=== PATIENT | male | born 1990 | race Caucasian/White ===

== ENCOUNTER 2017-12-05 09:24 | Emergency (ER) | payer OTHER ==
[2017-12-05 09:32] VITALS: RESP 16
--- NOTE | 2017-12-05 10:44 | ED ---
Wound/Laceration HPI - General Chief Complaint: Wound/Laceration Stated Complaint: finger lac Time Seen by Provider: 12/05/17 09:43 Source: patient, RN notes reviewed Mode of arrival: ambulatory Limitations: no limitations - History of Present Illness Initial Comments: 27-year-old male presents emergency Department chief complaint of laceration. Patient has a laceration to his left hand third digit. This happened around 1 AM this morning. Patient states he cut his finger with a late razor blade. His tetanus is up-to-date. Patient's full range of motion. - Related Data Home Medications Medication Instructions Recorded Confirmed No Known Home Medications [No 12/05/17 12/05/17 Known Home Medications] Allergies Allergy/AdvReac Type Severity Reaction Status Date / Time No Known Allergies Allergy Verified 12/05/17 09:41 Review of Systems ROS Statement: Those systems with pertinent positive or pertinent negative responses have been documented in the HPI. ROS Other: All systems not noted in ROS Statement are negative. Past Medical History Past Medical History: Seizure Disorder Additional Past Medical History / Comment(s): DDD, scoliosis, ADHD History of Any Multi-Drug Resistant Organisms: None Reported Additional Past Surgical History / Comment(s): facial surgery after dog bite. DDD , scoliosis Past Psychological History: ADD/ADHD, Schizoaffective Disorder Smoking Status: Current every day smoker Past Alcohol Use History: Rare Past Drug Use History: Marijuana, Methamphetamine, Opiates General Exam Limitations: no limitations General appearance: alert, in no apparent distress Respiratory exam: Present: normal lung sounds bilaterally. Absent: respiratory distress, wheezes, rales, rhonchi, stridor Cardiovascular Exam: Present: regular rate, normal rhythm, normal heart sounds. Absent: systolic murmur, diastolic murmur, rubs, gallop, clicks Extremities exam: Present: other (Left hand third digit there is a 2 cm laceration at the distal tip patient's full range of motion neurovascular intact Refill less than 2 seconds) Course Vital Signs 12/05/17 09:31 Temperature 97.1 F L Pulse Rate 59 L Respiratory 16 Rate Blood Pressure 125/82 O2 Sat by Pulse 100 Oximetry Procedures - Laceration Laceration #1 Consent Obtained: verbal consent Indication: laceration Site: hand (Left third digit) Size (cm): 2 Description: linear Anesthetic Used: lidocaine 1%, without epi Anesthesia Technique: local infiltration Amount (mls): 2 Pre-repair: wound explored, irrigated extensively, deep structures intact Type of Sutures: nylon Size of Sutures: 4-0 Number of Sutures: 5 Technique: simple, interrupted Patient Tolerated Procedure: well, no complications Medical Decision Making - Medical Decision Making 27-year-old male presented for finger laceration. This was closed using sutures. Patient tolerated well no complications. Tetanus is up-to-date. Wound care was discussed. Return parameters were discussed. Disposition Clinical Impression: Finger laceration Disposition: HOME SELF-CARE Condition: Stable Instructions: Finger Laceration (ED) Additional Instructions: Has sutures removed in 10 days. Please return to the Emergency Department if symptoms worsen or any other concerns. Is patient prescribed a controlled substance at d/c from ED?: No Referrals: None,Stated [Primary Care Provider] - 1-2 days
[2017-12-05 11:07] VITALS: BP 111/70; PULSE 60; TEMP 98
== END 2017-12-05 11:06 | disposition home or self-care (01) ==
LOC: EC 09:24
DX: S61.213A Laceration without foreign body of left middle finger without damage to nail, initial encounter (principal); F17.200 Nicotine dependence, unspecified, uncomplicated; W45.8XXA Other foreign body or object entering through skin, initial encounter; Y93.89 Activity, other specified
CPT/HCPCS: 12001; 99282

== ENCOUNTER 2017-12-26 23:33 | Emergency (ER) | payer OTHER ==
--- NOTE | 2017-12-26 23:42 | ED ---
General Adult HPI - General Stated complaint: overdose Time Seen by Provider: 12/26/17 23:35 Source: patient, EMS, RN notes reviewed Mode of arrival: EMS Limitations: no limitations - History of Present Illness Initial comments: Patient is a 27-year-old male presenting to the emergency department following an overdose. Patient states he does occasionally use drugs. 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 Patient does occasionally use heroin and believes he injected heroin tonight. EMS did provide patient with Narcan. Patient feels fine at this time and has no complaints. Patient denies any suicidal thoughts. Patient states he is functioning fine otherwise. - Related Data Home Medications Medication Instructions Recorded Confirmed No Known Home Medications 12/05/17 12/05/17 Allergies Allergy/AdvReac Type Severity Reaction Status Date / Time No Known Allergies Allergy Verified 12/26/17 23:40 Review of Systems ROS Statement: Those systems with pertinent positive or pertinent negative responses have been documented in the HPI. ROS Other: All systems not noted in ROS Statement are negative. Constitutional: Denies: fever Eyes: Denies: eye pain ENT: Denies: ear pain Respiratory: Denies: cough Cardiovascular: Denies: chest pain Endocrine: Denies: fatigue Gastrointestinal: Denies: abdominal pain Genitourinary: Denies: dysuria Musculoskeletal: Denies: back pain Skin: Denies: rash Neurological: Denies: weakness Psychiatric: Denies: suicidal thoughts Past Medical History Past Medical History: Seizure Disorder Additional Past Medical History / Comment(s): DDD, scoliosis, ADHD History of Any Multi-Drug Resistant Organisms: None Reported Additional Past Surgical History / Comment(s): facial surgery after dog bite. DDD , scoliosis Past Psychological History: ADD/ADHD, Schizoaffective Disorder Smoking Status: Current every day smoker Past Alcohol Use History: Rare Past Drug Use History: Marijuana, Methamphetamine, Opiates General Exam Limitations: no limitations General appearance: alert, in no apparent distress Head exam: Present: atraumatic Eye exam: Present: normal appearance, PERRL, EOMI ENT exam: Present: normal oropharynx Neck exam: Present: normal inspection. Absent: tenderness Respiratory exam: Present: normal lung sounds bilaterally Cardiovascular Exam: Present: regular rate, normal rhythm GI/Abdominal exam: Present: soft. Absent: tenderness Extremities exam: Present: normal inspection Neurological exam: Present: alert Psychiatric exam: Present: agitated (Patient is mildly agitated) Skin exam: Present: normal color Course Vital Signs 12/26/17 23:34 Temperature 97.8 F Pulse Rate 101 H Respiratory 18 Rate Blood Pressure 152/90 O2 Sat by Pulse 99 Oximetry Medical Decision Making - Medical Decision Making Patient remains alert and appropriate. Patient requesting discharge. Disposition Clinical Impression: Drug overdose Disposition: HOME SELF-CARE Condition: Stable Instructions: Adult Overdose (ED) Additional Instructions: Discontinue heroin and other drug use. Follow-up list provided. Return for drowsiness, worsening symptoms, thoughts of self-harm or other concerns. Is patient prescribed a controlled substance at d/c from ED?: No Referrals: Amanda Esquivel MD [STAFF PHYSICIAN] - 1-2 days Time of Disposition: 00:23
[2017-12-26 23:45] VITALS: RESP 18
[2017-12-27 00:28] VITALS: BP 142/67; PULSE 100; TEMP 97.9
== END 2017-12-27 00:28 | disposition home or self-care (01) ==
LOC: EC 23:33
DX: T40.1X1A Poisoning by heroin, accidental (unintentional), initial encounter (principal); R45.1 Restlessness and agitation; F17.200 Nicotine dependence, unspecified, uncomplicated
CPT/HCPCS: 99284

== ENCOUNTER 2018-03-04 10:56 | Inpatient (IN) | payer OTHER ==
[2018-03-04] MEDS ORDERED: SODIUM CHLORIDE 0.9% 1,000 ML IV STA (11:18)
--- NOTE | 2018-03-04 11:21 | ED ---
General Adult HPI - General Chief complaint: Weakness Stated complaint: weakness, orange urine Time Seen by Provider: 03/04/18 11:00 Source: patient, RN notes reviewed Mode of arrival: ambulatory Limitations: no limitations - History of Present Illness Initial comments: This is a 27-year-old male who presents emergency Department with no significant past medical history. Patient states he comes in today because he has been feeling weak the last few days. Patient states it started on Saturday and continued through today. Patient states he missed work yesterday and missed work again today. Patient states on Saturday he vomited times one hasn't vomited since. Patient denies any diarrhea. Patient denies any recent fever. Patient states his urine is also been very orange in color. Patient is also complaining of muscle cramps in the legs and arms. Patient denies any difficulty breathing or chest pain. Patient denies any recent injury or trauma. Patient denies any lightheadedness dizziness or near syncopal episode. Patient states overall he just feels weaker than normal - Related Data Home Medications Medication Instructions Recorded Confirmed No Known Home Medications 12/05/17 03/04/18 Allergies Allergy/AdvReac Type Severity Reaction Status Date / Time No Known Allergies Allergy Verified 12/26/17 23:40 Review of Systems ROS Statement: Those systems with pertinent positive or pertinent negative responses have been documented in the HPI. ROS Other: All systems not noted in ROS Statement are negative. Past Medical History Past Medical History: Seizure Disorder Additional Past Medical History / Comment(s): DDD, scoliosis, ADHD History of Any Multi-Drug Resistant Organisms: None Reported Additional Past Surgical History / Comment(s): facial surgery after dog bite. DDD , scoliosis Past Psychological History: ADD/ADHD, Schizoaffective Disorder Smoking Status: Current every day smoker Past Alcohol Use History: Rare Past Drug Use History: Marijuana General Exam - General Exam Comments Initial Comments: GENERAL: Patient is well-developed and well-nourished. Patient is nontoxic and well- hydrated and is in no acute distress. ENT: Neck is soft and supple. No significant lymphadenopathy is noted. Oropharynx is clear. Moist mucous membranes. Neck has full range of motion without eliciting any pain. EYES: The sclera were anicteric and conjunctiva were pink and moist. Extraocular movements were intact and pupils were equal round and reactive to light. Eyelids were unremarkable. PULMONARY: Unlabored respirations. Good breath sounds bilaterally. No audible rales rhonchi or wheezing was noted. CARDIOVASCULAR: There is a regular rate and rhythm without any murmurs gallops or rubs. ABDOMEN: Soft and nontender with normal bowel sounds. No palpable organomegaly was noted. There is no palpable pulsatile mass. SKIN: Skin is clear with no lesions or rashes and otherwise unremarkable. NEUROLOGIC: Patient is alert and oriented x3. Cranial nerves II through XII are grossly intact. Motor and sensory are also intact. Normal speech, volume and content. Symmetrical smile. MUSCULOSKELETAL: Normal extremities with adequate strength and full range of motion. No lower extremity swelling or edema. No calf tenderness. LYMPHATICS: No significant lymphadenopathy is noted PSYCHIATRIC: Normal psychiatric evaluation. Limitations: no limitations Course Vital Signs 03/04/18 03/04/18 11:06 12:10 Temperature 97.5 F L 97.2 F L Pulse Rate 65 60 Respiratory 18 20 Rate Blood Pressure 103/63 118/68 O2 Sat by Pulse 99 100 Oximetry Medical Decision Making - Medical Decision Making I spoke with Dr. Mojica he agreed to admit the patient admitted the patient I consult the GI. I wrote admitting orders. - Lab Data Result diagrams: 03/04/18 11:39 03/04/18 11:39 Lab Results 03/04/18 03/04/18 03/04/18 Range/Units 11:28 11:39 11:39 WBC 6.9 (3.8-10.6) k/uL RBC 5.03 (4.30-5.90) m/uL Hgb 14.8 (13.0-17.5) gm/dL Hct 45.7 (39.0-53.0) % MCV 90.8 (80.0-100.0) fL MCH 29.5 (25.0-35.0) pg MCHC 32.5 (31.0-37.0) g/dL RDW 13.8 (11.5-15.5) % Plt Count 174 (150-450) k/uL Neutrophils % 76 % Lymphocytes % 13 % Monocytes % 7 % Eosinophils % 1 % Basophils % 1 % Neutrophils # 5.2 (1.3-7.7) k/uL Lymphocytes # 0.9 L (1.0-4.8) k/uL Monocytes # 0.5 (0-1.0) k/uL Eosinophils # 0.1 (0-0.7) k/uL Basophils # 0.0 (0-0.2) k/uL Sodium 139 (137-145) mmol/L Potassium 4.9 (3.5-5.1) mmol/L Chloride 105 (98-107) mmol/L Carbon Dioxide 23 (22-30) mmol/L Anion Gap 11 mmol/L BUN 17 (9-20) mg/dL Creatinine 0.75 (0.66-1.25) mg/dL Est GFR (CKD-EPI)AfAm >90 (>60 ml/min/1.73 sqM) Est GFR (CKD-EPI)NonAf >90 (>60 ml/min/1.73 sqM) Glucose 128 H (74-99) mg/dL Calcium 9.2 (8.4-10.2) mg/dL Total Bilirubin 5.1 H (0.2-1.3) mg/dL AST 1817 H (17-59) U/L ALT 2552 H (21-72) U/L Alkaline Phosphatase 192 H (38-126) U/L Total Protein 7.4 (6.3-8.2) g/dL Albumin 4.0 (3.5-5.0) g/dL Amylase 44 (30-110) U/L Lipase 68 (23-300) U/L Urine Color Dark Yellow Urine Appearance Clear (Clear) Urine pH 6.5 (5.0-8.0) Ur Specific [place] 1.022 (1.001-1.035) Urine Protein Trace H (Negative) Urine Glucose (UA) Negative (Negative) Urine Ketones Negative (Negative) Urine Blood Negative (Negative) Urine Nitrite Negative (Negative) Urine Bilirubin 2+ H (Negative) Urine Urobilinogen 8.0 (<2.0) mg/dL Ur Leukocyte Esterase Negative (Negative) Disposition Clinical Impression: Acute hepatitis Disposition: ADMITTED IP TO THIS HOSP Referrals: None,Stated [Primary Care Provider] - 1-2 days Time of Disposition: 13:41
[2018-03-04 11:55] LABS: Appearance,Urine Clear (Clear); Bilirubin,Urine 2+ (Negative); Blood,Urine Negative (Negative); Color,Urine Dark Yellow; Glucose,Urine (UA) Negative (Negative); Ketones,Urine Negative (Negative); Leukocyte Esterase,Urine Negative (Negative); Nitrite,Urine Negative (Negative); PH, Urine 6.5 (5.0-8.0); Protein,Urine Trace (Negative); Specific Gravity,Urine 1.022 (1.001-1.035)
[2018-03-04 11:59] LABS: Basophils % (A) 1 %; Eosinophils # (A) 0.1 k/uL (0-0.7); Eosinophils % (A) 1 %; HCT 45.7 % (39.0-53.0); HGB 14.8 gm/dL (13.0-17.5); Lymphocytes # (A) 0.9 k/uL (1.0-4.8); Lymphocytes % (A) 13 %; MCH 29.5 pg (25.0-35.0); MCHC 32.5 g/dL (31.0-37.0); MCV 90.8 fL (80.0-100.0); Mean Platelet Volume 8.7; Monocytes # (A) 0.5 k/uL (0-1.0); Monocytes % (A) 7 %; Neutrophils # (A) 5.2 k/uL (1.3-7.7); Neutrophils % (A) 76 %; Platelet Count 174 k/uL (150-450); RBC 5.03 m/uL (4.30-5.90); RDW 13.8 % (11.5-15.5); WBC 6.9 k/uL (3.8-10.6)
[2018-03-04 12:04] LABS: Alkaline Phosphatase 192 U/L (38-126); Amylase 44 U/L (30-110); Anion Gap 11 mmol/L; Blood Urea Nitrogen 17 mg/dL (9-20); Calcium 9.2 mg/dL (8.4-10.2); Carbon Dioxide 23 mmol/L (22-30); Chloride 105 mmol/L (98-107); Glucose 128 mg/dL (74-99); Lipase 68 U/L (23-300); Potassium 4.9 mmol/L (3.5-5.1); Sodium 139 mmol/L (137-145); Total Bilirubin 5.1 mg/dL (0.2-1.3); Total Protein 7.4 g/dL (6.3-8.2)
[2018-03-04 12:25] LABS: ALT 2552 U/L (21-72); AST 1817 U/L (17-59)
[2018-03-04] MEDS ORDERED: SODIUM CHLORIDE 0.9% 1,000 ML IV ONE (13:42)
[2018-03-04 13:58] LABS: Hepatitis A AB IgM Index 0.03; Hepatitis A Antibody IgM NEGATIVE
[2018-03-04] MEDS ORDERED: ONDANSETRON 4 MG/2 ML VIAL IVP PRN (14:39)
[2018-03-04] MEDS ORDERED: SODIUM CHLORIDE 0.9% 2,000 ML IV ONE (14:40)
--- NOTE | 2018-03-04 14:46 | P.HPIM ---
History of Present Illness H&P Date: 03/04/18 Chief Complaint: Abdominal pain muscle cramps nausea The patient is a 27-year-old male with no significant past medical history who presents to the ER via private vehicle with chief complaint of dark colored urine, abdominal pain and nausea. Apparently the patient has had progressive worsening nausea over the last 3-4 weeks and over the last week began having sharp intermittent epigastric nonradiating abdominal pain to go along with his nausea, he denies any subjective fevers chills or night sweats, denies any diarrhea or constipation or abnormal bowel habits. He does complain of increasing dark urine over the last week, with increasing fatigue, weakness and lower extremity muscle cramps. The patient also mentions intermittent joint pain during this time. He denies any itchiness, pale colored or melanotic stools. The patient does have a history of drug abuse reports he used to abuse and methamphetamine and heroin, and only now does marijuana. In the ED he had a conference of workup including a CBC CMP with significantly elevated transaminitis with AST ALT of 1817/2552 respectively with hyperbilirubinemia 5.1 with the urine showing 2+ bilirubin and trace protein. Patient was noted to be hemodynamically stable. Patient is recommended to be admitted for hepatitis Review of Systems Pertinent positives per HPI, all other review of systems are otherwise negative Past Medical History Past Medical History: Seizure Disorder Additional Past Medical History / Comment(s): DDD, scoliosis, ADHD History of Any Multi-Drug Resistant Organisms: None Reported Additional Past Surgical History / Comment(s): facial surgery after dog bite. DDD , scoliosis Past Psychological History: ADD/ADHD, Schizoaffective Disorder Smoking Status: Current every day smoker Past Alcohol Use History: Rare Past Drug Use History: Marijuana Medications and Allergies Home Medications Medication Instructions Recorded Confirmed Type No Known Home Medications 12/05/17 03/04/18 History Allergies Allergy/AdvReac Type Severity Reaction Status Date / Time No Known Allergies Allergy Verified 03/04/18 14:12 Physical Exam Vitals: Vital Signs Temp Pulse Resp BP Pulse Ox 03/04/18 13:55 97.0 F L 55 L 18 111/70 100 03/04/18 12:10 97.2 F L 60 20 118/68 100 03/04/18 11:06 97.5 F L 65 18 103/63 99 Intake and Output 03/03/18 03/04/1803/04/18 22:59 06:59 14:59 Other: Weight 73.936 kg Constitutional: No acute distress, conversant, pleasant Eyes: Anicteric sclerae, moist conjunctiva, no lid-lag, PERRLA ENMT: NC/AT,Oropharynx clear, no erythema, exudates Neck:Supple, FROM, no masses, or JVD, No carotid bruits; No thyromegaly Lungs: Clear to auscultation, Clear to percussion, Normal respiratory effort, no accessory muscle use Cardiovascular: Heart regular in rate and rhythm, No murmurs, gallops, or rubs no peripheral edema Abdominal: Soft tender to palpation in the epigastrium and right upper quadrant , no guarding, no rebound or rigidity, Normoactive bowel sounds No hepatomegaly , No splenomegaly, No palpable mass No abdominal wall hernia noted Skin: Normal temperature, tone, texture, turgor, No induration No subcutaneous nodules, No rash, lesions, No ulcers Extremities:No digital cyanosis No clubbing, Pedal pulses intact and symmetrical Radial pulses intact and symmetrical Normal gait and station, No calf tenderness Psychiatric: Alert and oriented to person, place and time, Appropriate affect Intact judgement Neuro: Muscles Strength 5/5 in all 4 extremities, Sensation to light touch grossly present throughout, Cranial nerves II-XII grossly intact. No focal sensory deficits Results CBC & Chem 7: 03/04/18 11:39 03/04/18 11:39 Labs: Abnormal Lab Results - Last 24 Hours (Table) 03/04/18 03/04/18 03/04/18 Range/Units 11:28 11:39 11:39 Lymphocytes # 0.9 L (1.0-4.8) k/uL Glucose 128 H (74-99) mg/dL Total Bilirubin 5.1 H (0.2-1.3) mg/dL AST 1817 H (17-59) U/L ALT 2552 H (21-72) U/L Alkaline Phosphatase 192 H (38-126) U/L Urine Protein Trace H (Negative) Urine Bilirubin 2+ H (Negative) Assessment and Plan (1) Acute hepatitis Current Visit: Yes Status: Acute Code(s): B17.9 - ACUTE VIRAL HEPATITIS, UNSPECIFIED SNOMED Code(s): 93149881 (2) Transaminitis Current Visit: Yes Status: Acute Code(s): R74.0 - NONSPEC ELEV OF LEVELS OF TRANSAMNS & LACTIC ACID DEHYDRGNSE SNOMED Code(s): 290329109 (3) Bilirubinemia Current Visit: Yes Status: Acute Code(s): E80.6 - OTHER DISORDERS OF BILIRUBIN METABOLISM SNOMED Code(s): 01226332 (4) Abdominal pain Current Visit: Yes Status: Acute Code(s): R10.9 - UNSPECIFIED ABDOMINAL PAIN SNOMED Code(s): 57898857 (5) Nausea & vomiting Current Visit: Yes Status: Acute Code(s): R11.2 - NAUSEA WITH VOMITING, UNSPECIFIED SNOMED Code(s): 46512546 Plan: The patient is patient observation anticipated less than 2 midnight stay with concern for acute hepatitis with a significant transaminitis with hyperbilirubinemia. We'll initiate workup for etiology, follow-up hep panel, Tylenol level, UDS, MARY, ANCA, right upper quadrant ultrasound, check coag profile. Consult GI for further recommendations continue supportive management with IV fluids and antiemetics when necessary. Follow-up labs in the a.m.. Continue to follow his clinical course and recommendations from consultants. CODE STATUS full code Discussed with patient DVT prophylaxis : SCDs patient ambulatory Anticipated discharge 1 to 2 days
[2018-03-04 14:55] LABS: INR 1.2 (<1.2); Partial Thromboplastin Time 25.5 sec (22.0-30.0); Prothrombin Time 11.3 sec (9.0-12.0)
[2018-03-04 15:31] LABS: Acetaminophen <10.0 ug/mL; Alcohol <10 mg/dL
[2018-03-04 15:32] LABS: Amphetamine Screen,Urine Detected (NotDetected); Barbiturate Screen,Urine Not Detected (NotDetected); Benzodiazepines Screen,Urine Not Detected (NotDetected); Cocaine Screen,Urine Not Detected (NotDetected); Methadone Screen, Urine Not Detected (NotDetected); Opiate Screen,Urine Not Detected (NotDetected); Oxycodone Screen, Urine Not Detected (NotDetected); Phencyclidine Screen,Urine Not Detected (NotDetected); Tricyclic Antidepressant,Urine Not Detected (NotDetected); Urn Cannabinoid Scrn Detected (NotDetected)
[2018-03-04] MEDS ORDERED: HYDROcodone/APAP 5-325MG 1 EACH TAB PO STA (19:45)
[2018-03-04 20:36] LABS: Hepatitis B Core IgM Non-Reactive (Non-Reactive)
[2018-03-05 10:10] LABS: INR 1.3 (<1.2); Prothrombin Time 12.5 sec (9.0-12.0)
[2018-03-05 10:16] LABS: Alkaline Phosphatase 134 U/L (38-126); Anion Gap 6 mmol/L; Blood Urea Nitrogen 10 mg/dL (9-20); Calcium 8.4 mg/dL (8.4-10.2); Carbon Dioxide 24 mmol/L (22-30); Chloride 106 mmol/L (98-107); Glucose 90 mg/dL (74-99); Potassium 4.9 mmol/L (3.5-5.1); Sodium 136 mmol/L (137-145); Total Bilirubin 4.1 mg/dL (0.2-1.3); Total Protein 5.9 g/dL (6.3-8.2)
[2018-03-05 10:35] LABS: AST 1493 U/L (17-59)
[2018-03-05 10:36] LABS: ALT 1924 U/L (21-72)
--- NOTE | 2018-03-05 13:19 | US ---
EXAMINATION TYPE: US abdomen limited DATE OF EXAM: 03/04/2018 COMPARISON: NONE CLINICAL HISTORY: transaminitis. abdominal pain. NPO. EXAM MEASUREMENTS: Liver Length: 19.4 cm Gallbladder Wall: 1.4 cm Right Kidney: 12.7 x 5.8 x 4.2 cm Pancreas: wnl, distalmost tail is limited due to bowel gas. Liver: Appears enlarged in size Gallbladder: Thickened wall. No stones or sludge seen Evidence for sonographic Arzate's sign: neg CBD: Obscured by overlying bowel gas CHD: not visualized Right Kidney: wnl IMPRESSION: 1. Marked thickening of the gallbladder wall 1.4 cm. Normal less than 0.3 cm. No pericholecystic flui d or cholelithiasis is identified. Consider chronic cholecystitis.
--- NOTE | 2018-03-05 13:26 | P.CONS ---
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 Admission total bilirubin 5.1. AST 1817. ALT 2552. Alkaline phosphatase 192. Today total bilirubin is 4.1. AST 1493. ALT 1924. Alkaline phosphatase 134. Amylase lipase within normal limits. INR 1.2-1.3. White count 6.9. Hemoglobin 14.8. Platelet 174. Ferritin 702.3 Serum alcohol level <10. Hepatitis panel; hepatitis C IgG antibody reactive. Patient states he suspected having hepatitis C for about a year but was never formally diagnosed. Hepatitis A and B nonreactive. MARY negative. Toxicology detected amphetamines methamphetamines and marijuana. Vehemently denies heroin usage. No NSAIDs or aspirin products. No alcohol. No history of jaundice hepatitis. No new medications. Review of previous medical records LFTs within normal limits November 2015. Ultrasound abdomen marked thickening of the gallbladder wall 1.4 cm no pericholecystic fluid or stones identified. Consider chronic cholecystitis. CBD and CHD not visualized. Review of Systems Constitutional: Denies fever, chills, sweats, weight gain, or loss. Admitted with weakness decreased appetite. HEENT: Negative for migraines, blurred vision or loss, earaches, drainage, tinnitus, oral mucosal lesions, dysphagia, or odynophagia. Cardiac: Negative for chest pain, arrhythmias, or palpitation. Respiratory: Negative for shortness of breath, hemoptysis, cough, or sputum production. Gastrointestinal: See HPI for pertinent findings. Genitourinary: Negative for hematuria, urgency, frequency, polyuria, dysuria, or penile discharge. Musculoskeletal: Negative for muscle aches, swelling, arthritis, and arthralgias. Neurologic: Negative for stroke or TIA. Endocrine: Negative for thyroid problems. Skin: Negative for rash or itching. Psychiatric: Negative history for depression and anxiety Past Medical History Past Medical History: Seizure Disorder Additional Past Medical History / Comment(s): DDD, scoliosis, ADHD History of Any Multi-Drug Resistant Organisms: None Reported Additional Past Surgical History / Comment(s): facial surgery after dog bite. DDD , scoliosis Past Anesthesia/Blood Transfusion Reactions: No Reported Reaction Additional Past Anesthesia/Blood Transfusion Reaction / Comm: clausterphobia Past Psychological History: ADD/ADHD, Schizoaffective Disorder Smoking Status: Current every day smoker Past Alcohol Use History: Rare Past Drug Use History: Marijuana - Past Family History Mother Additional Family Medical History / Comment(s): psych issues , anger issues, ddd , crohns disease Father History Unknown: Yes Medications and Allergies Home Medications Medication Instructions Recorded Confirmed Type No Known Home Medications 12/05/17 03/04/18 History Allergies Allergy/AdvReac Type Severity Reaction Status Date / Time No Known Allergies Allergy Verified 03/04/18 14:12 Physical Exam Vitals: Vital Signs Temp Pulse Pulse Resp BP BP Pulse Ox 03/05/18 11:47 98.2 F 65 18 129/69 100 03/05/18 08:47 98.2 F 53 L 18 117/73 100 03/05/18 05:00 96.4 F L 53 L 16 127/66 99 03/04/18 20:35 97.9 F 67 16 118/65 100 03/04/18 17:26 97.3 F L 72 18 115/59 100 03/04/18 13:55 97.0 F L 55 L 18 111/70 100 Intake and Output 03/04/18 03/05/18 03/05/18 22:59 06:59 14:59 Intake Total 525 Balance 525 Intake: Intake, IV Titration 525 Amount Sodium Chloride 0.9% 1, 525 000 ml @ 150 mls/hr IV . Q6H40M ONE Rx#:[id number] Other: Voiding Method Toilet # Voids 2 General appearance: The patient is alert, oriented, in no acute distress. Mildly jaundice. Sclerae icterus. HET: Head is normocephalic and atraumatic. Pupils are equal and reactive. Oropharynx is clear without lesions. Neck: Supple without lymphadenopathy. Trachea midline. Heart: S1 S2. Regular rate and rhythm. Lungs: No crackles or wheezes are heard. Abdomen: Soft, mild right upper quadrant tenderness, nondistended with bowel sounds. No peritoneal signs. No palpable organomegaly or masses. Extremities: Normal skin color and turgor. No cyanosis, rash, ulceration, clubbing, or edema. Radial and pedal pulses are 2/4 bilaterally. Neurological: No focal deficits. Strength and sensation are grossly intact. Results CBC & Chem 7: 03/04/18 11:39 03/05/18 09:18 Labs: Abnormal Lab Results - Last 24 Hours (Table) 03/04/18 03/04/18 03/04/18 Range/Units 11:28 11:39 11:39 PT (9.0-12.0) sec INR 1.2 H (<1.2) Sodium (137-145) mmol/L Ferritin (22.0-322.0) ng/mL Total Bilirubin (0.2-1.3) mg/dL AST (17-59) U/L ALT (21-72) U/L Alkaline Phosphatase (38-126) U/L Total Protein (6.3-8.2) g/dL Albumin (3.5-5.0) g/dL Ur Amphetamines Screen Detected H (NotDetected) U Methamphetamines Scrn Detected H (NotDetected) U Marijuana (THC) Screen Detected H (NotDetected) Hep C IgG Ab Reactive H (Non-Reactive) 03/04/18 03/05/18 03/05/18 Range/Units 15:05 09:18 09:18 PT 12.5 H (9.0-12.0) sec INR 1.3 H (<1.2) Sodium 136 L (137-145) mmol/L Ferritin 702.3 H (22.0-322.0) ng/mL Total Bilirubin 4.1 H (0.2-1.3) mg/dL AST 1493 H (17-59) U/L ALT 1924 H (21-72) U/L Alkaline Phosphatase 134 H (38-126) U/L Total Protein 5.9 L (6.3-8.2) g/dL Albumin 3.0 L (3.5-5.0) g/dL Ur Amphetamines Screen (NotDetected) U Methamphetamines Scrn (NotDetected) U Marijuana (THC) Screen (NotDetected) Hep C IgG Ab (Non-Reactive) US - abdomen: report reviewed (Dr. Cherry) Assessment and Plan (1) Acute hepatitis Narrative/Plan: 27-year-old male admitted with multiple constitutional symptoms such as nausea vomiting fatigue weakness darker colored urine without fever and mild midepigastric right upper quadrant abdominal pain with grossly elevated transaminases hyperbilirubinemia jaundice consistent with acute hepatocellular injury possible drug-induced possible viral. Obstructive jaundice felt to be less likely even though bile ducts could not be seen on US imaging. Urinalysis detected methamphetamine and amphetamine usage. An underlying chronic hepatitis C infection cannot be excluded with positive hepatitis C reactive antibody. Current Visit: Yes Status: Acute Code(s): B17.9 - ACUTE VIRAL HEPATITIS, UNSPECIFIED SNOMED Code(s): 10171328 (2) Hepatitis C antibody positive in blood Narrative/Plan: History of intravenous drug abuse possible chronic hepatitis C Current Visit: Yes Status: Acute Code(s): R76.8 - OTHER SPECIFIED ABNORMAL IMMUNOLOGICAL FINDINGS IN SERUM SNOMED Code(s): 195624932 (3) History of heroin abuse Current Visit: Yes Status: Acute Code(s): Z87.898 - PERSONAL HISTORY OF OTHER SPECIFIED CONDITIONS SNOMED Code(s): 018849716 (4) Abdominal pain Current Visit: Yes Status: Acute Code(s): R10.9 - UNSPECIFIED ABDOMINAL PAIN SNOMED Code(s): 52136619 (5) Nausea & vomiting Current Visit: Yes Status: Acute Code(s): R11.2 - NAUSEA WITH VOMITING, UNSPECIFIED SNOMED Code(s): 17261847 Plan: 1. Viral studies; EBV and CMV. Recommend HIV testing. Additional hepatitis C testing including quantitative measurement and genotype requested. 2. Diet as tolerated supportive measures. Total bilirubin transaminases slowly improving. Drug alcohol abstinence was advised. No NSAIDs or aspirin. 3. CMP CBC PT INR in a.m. If liver enzymes worsen consideration for MRI. Follow up in GI office after discharge for reevaluation. If hepatitis C treatment is necessary based on additional requested serology results outpatient treatment options will be discussed in follow-up visit. Will follow closely with you. Thank you for this kind referral and the opportunity to participate in the care of your patient. This consultation was discussed with Dr. Cherry. The impression and plan of care have been directed as dictated.
[2018-03-05] MEDS ORDERED: IBUPROFEN 400 MG TAB PO PRN (14:30)
[2018-03-05] MEDS: HYDROcodone/APAP 5-325MG 1 EACH TAB PO PRN ×2 (14:38→20:47)
--- NOTE | 2018-03-05 14:50 | P.PN ---
Subjective Progress Note Date: 03/05/18 (delayed charting patient seen at 1230) Principal diagnosis: abdominal pain Patient is a 27-year-old male with past medical history of intravenous drug use with heroin and methamphetamine, seizure disorder, and tobacco abuse who presented to the ER with complaints of weakness, abdominal pain, and vomiting. In the ER he was noted to have significantly elevated liver enzymes. He was hemodynamically stable. He was admitted for further monitoring. GI was consulted. He was subsequently found have positive hepatitis C antibody. They're to multiple slightly high at 700. FARIDA is pending. Liver ultrasound was consistent with possible chronic cholecystitis but no stone was identified or common bile and common hepatic duct were not able to be visualized. GI ordered hepatitis C genotype and RNA as well as EBV and CMV cytology. Patient seen and examined at bedside. He complains of abdominal pain underneath his ribs that starts on the right and radiates to the left. No nausea or vomiting. Continues to have in appetite. No diarrhea or constipation. Objective - Vital Signs Vital signs: Vital Signs Temp 98.2 F 03/05/18 11:47 Pulse 65 03/05/18 11:47 Resp 18 03/05/18 11:47 BP 129/69 03/05/18 11:47 Pulse Ox 100 03/05/18 11:47 Intake & Output 03/04/18 03/05/18 03/05/18 18:59 06:59 18:59 Intake Total 525 Balance 525 Weight 73.936 kg Intake: Intake, IV Titration 525 Amount Sodium Chloride 0.9% 1, 525 000 ml @ 150 mls/hr IV . Q6H40M ONE Rx#:[id number] Other: Voiding Method Toilet # Voids 2 - Exam General: Ill-appearing, no distress, appears at stated age Derm: warm, dry Head: atraumatic, normocephalic, symmetric Eyes: EOMI, no lid lag, anicteric sclera Mouth: no lip lesion, mucus membranes moist Cardiovascular: S1S2 reg, no murmur, positive posterior tibial pulse bilateral, Lungs: CTA bilateral, no rhonchi, no rales , no accessory muscle use Abdominal: soft, tender to palpation right upper quadrant, left upper quadrant, and right lower quadrant, no guarding, no appreciable organomegaly Ext: no gross muscle atrophy, no edema, no contractures Neuro: CN II-XI grossly intact, no focal neuro deficits Psych: Alert, oriented, appropriate affect - Labs CBC & Chem 7: 03/04/18 11:39 03/05/18 09:18 Labs: Abnormal Lab Results - Last 24 Hours (Table) 03/04/18 03/04/18 03/04/18 Range/Units 11:28 11:39 11:39 PT (9.0-12.0) sec INR 1.2 H (<1.2) Sodium (137-145) mmol/L Ferritin (22.0-322.0) ng/mL Total Bilirubin (0.2-1.3) mg/dL AST (17-59) U/L ALT (21-72) U/L Alkaline Phosphatase (38-126) U/L Total Protein (6.3-8.2) g/dL Albumin (3.5-5.0) g/dL Ur Amphetamines Screen Detected H (NotDetected) U Methamphetamines Scrn Detected H (NotDetected) U Marijuana (THC) Screen Detected H (NotDetected) Hep C IgG Ab Reactive H (Non-Reactive) 03/04/18 03/05/18 03/05/18 Range/Units 15:05 09:18 09:18 PT 12.5 H (9.0-12.0) sec INR 1.3 H (<1.2) Sodium 136 L (137-145) mmol/L Ferritin 702.3 H (22.0-322.0) ng/mL Total Bilirubin 4.1 H (0.2-1.3) mg/dL AST 1493 H (17-59) U/L ALT 1924 H (21-72) U/L Alkaline Phosphatase 134 H (38-126) U/L Total Protein 5.9 L (6.3-8.2) g/dL Albumin 3.0 L (3.5-5.0) g/dL Ur Amphetamines Screen (NotDetected) U Methamphetamines Scrn (NotDetected) U Marijuana (THC) Screen (NotDetected) Hep C IgG Ab (Non-Reactive) Assessment and Plan Assessment: Acute hepatitis with positive hepatitis C antibody -Await hepatitis C genotyping and RNA -GI recommendations appreciated -Await CMV and EBV evaluation -Repeat CMP in a.m. -Outpatient GI follow-up Abdominal pain, secondary to above -Add Motrin and [place] as needed for pain History of IVDA -Continue remission -We'll check HIV with current hepatitis C positive Tobacco abuse -Cessation -Nicotine replacement DVT prophylaxis: SCDs Discussed with: Patient, nursing, family Anticipated discharge: 24-[address]: home A total of 25 minutes was spent on the care of this complex patient more than 50 % of the time was spent in counseling and care coordination.
[2018-03-05] MEDS: NICOTINE 14MG/24HR PATCH TRANSDERM SCH (18:32)
[2018-03-06 07:39] LABS: Basophils % (A) 1 %; Eosinophils # (A) 0.1 k/uL (0-0.7); Eosinophils % (A) 2 %; HCT 43.3 % (39.0-53.0); Lymphocytes # (A) 1.1 k/uL (1.0-4.8); Lymphocytes % (A) 17 %; MCH 29.2 pg (25.0-35.0); MCHC 32.3 g/dL (31.0-37.0); MCV 90.4 fL (80.0-100.0); Mean Platelet Volume 8.6; Monocytes # (A) 0.4 k/uL (0-1.0); Monocytes % (A) 7 %; Neutrophils # (A) 4.7 k/uL (1.3-7.7); Neutrophils % (A) 71 %; Platelet Count 164 k/uL (150-450); RBC 4.78 m/uL (4.30-5.90); WBC 6.6 k/uL (3.8-10.6)
[2018-03-06 07:44] LABS: INR 1.3 (<1.2); Prothrombin Time 11.9 sec (9.0-12.0)
[2018-03-06 07:55] LABS: Albumin 3.6 g/dL (3.5-5.0); Alkaline Phosphatase 161 U/L (38-126); Anion Gap 9 mmol/L; Blood Urea Nitrogen 11 mg/dL (9-20); Calcium 9.1 mg/dL (8.4-10.2); Carbon Dioxide 24 mmol/L (22-30); Chloride 104 mmol/L (98-107); Glucose 91 mg/dL (74-99); Potassium 4.7 mmol/L (3.5-5.1); Sodium 137 mmol/L (137-145); Total Bilirubin 4.1 mg/dL (0.2-1.3); Total Protein 6.8 g/dL (6.3-8.2)
[2018-03-06 08:22] LABS: ALT 2388 U/L (21-72); AST 1952 U/L (17-59)
[2018-03-06] MEDS: NICOTINE 14MG/24HR PATCH TRANSDERM SCH (08:48)
[2018-03-06] MEDS: HYDROcodone/APAP 5-325MG 1 EACH TAB PO PRN ×2 (09:30→20:24)
--- NOTE | 2018-03-06 11:35 | P.PN ---
Subjective Progress Note Date: 03/06/18 Principal diagnosis: Hepatitis Admitted with acute hepatitis. Hepatitis C reactive antibody. Feels a little better. Reports mild midepigastric right upper quadrant tenderness. White count 6.6. Hemoglobin 14. INR stable at 1.3. Total bilirubin stable 4.1. AST ALT increased 1952/2388. Alk phos 161. Acetaminophen and serum alcohol less than 10. Afebrile. Objective - Vital Signs Vital signs: Vital Signs Temp 97.9 F 03/06/18 07:00 Pulse 50 L 03/06/18 07:00 Resp 14 03/06/18 07:00 BP 126/76 03/06/18 07:00 Pulse Ox 99 03/06/18 07:00 Intake & Output 03/05/18 03/06/18 03/06/18 18:59 06:59 18:59 Intake Total 1460 480 Balance 1460 480 Weight 73.936 kg Intake: Intake, IV Titration 300 Amount Sodium Chloride 0.9% 1, 300 000 ml @ 150 mls/hr IV . Q6H40M ONE Rx#:[id number] Oral 1160 480 Other: Voiding Method Toilet Toilet # Voids 4 2 - Exam General appearance: The patient is alert, oriented, in no acute distress. Jaundice. HET: Head is normocephalic and atraumatic. Pupils are equal and reactive. Sclerae icterus. Oropharynx is clear without lesions. Neck: Supple without lymphadenopathy. Trachea midline. Heart: S1 S2. Regular rate and rhythm. Lungs: No crackles or wheezes are heard. Abdomen: Soft, mild right upper quadrant tenderness, nondistended with bowel sounds. No peritoneal signs. No palpable organomegaly or masses. Extremities: Normal skin color and turgor. No cyanosis, rash, ulceration, clubbing, or edema. Radial and pedal pulses are 2/4 bilaterally. Neurological: No focal deficits. Strength and sensation are grossly intact. - Labs CBC & Chem 7: 03/06/18 07:16 03/06/18 07:16 Labs: Abnormal Lab Results - Last 24 Hours (Table) 03/06/18 03/06/18 Range/Units 07:16 07:16 INR 1.3 H (<1.2) Creatinine 0.63 L (0.66-1.25) mg/dL Total Bilirubin 4.1 H (0.2-1.3) mg/dL AST 1952 H (17-59) U/L ALT 2388 H (21-72) U/L Alkaline Phosphatase 161 H (38-126) U/L Assessment and Plan (1) Acute hepatitis Narrative/Plan: 27-year-old male admitted with multiple constitutional symptoms such as nausea vomiting fatigue weakness darker colored urine without fever and mild midepigastric right upper quadrant abdominal pain with grossly elevated transaminases hyperbilirubinemia jaundice consistent with acute hepatocellular injury possible drug-induced possible viral. Obstructive jaundice felt to be less likely even though bile ducts could not be seen on US imaging. Urinalysis detected methamphetamine and amphetamine usage. An underlying chronic hepatitis C infection cannot be excluded with positive hepatitis C reactive antibody. Current Visit: Yes Status: Acute Code(s): B17.9 - ACUTE VIRAL HEPATITIS, UNSPECIFIED SNOMED Code(s): 30220960 (2) Hepatitis C antibody positive in blood Narrative/Plan: History of intravenous drug abuse possible chronic hepatitis C Current Visit: Yes Status: Acute Code(s): R76.8 - OTHER SPECIFIED ABNORMAL IMMUNOLOGICAL FINDINGS IN SERUM SNOMED Code(s): 414975707 (3) History of heroin abuse Current Visit: Yes Status: Acute Code(s): Z87.898 - PERSONAL HISTORY OF OTHER SPECIFIED CONDITIONS SNOMED Code(s): 112479715 (4) Abdominal pain Current Visit: Yes Status: Acute Code(s): R10.9 - UNSPECIFIED ABDOMINAL PAIN SNOMED Code(s): 36182045 (5) Nausea & vomiting Current Visit: Yes Status: Acute Code(s): R11.2 - NAUSEA WITH VOMITING, UNSPECIFIED SNOMED Code(s): 10660351 Plan: 1. Viral studies; EBV and CMV pending. Recommend HIV testing. Additional hepatitis C testing including quantitative measurement and genotype requested. 2. Diet as tolerated supportive measures. Transaminases have increased today advise another 24 hours of observation repeat CMP PT/INR in a.m; will proceed with MRCP imaging. Full serologic workup for chronic liver disease requested. Assessment and plan a care discussed with Dr. Cherry
[2018-03-06 13:47] LABS: C-ANCA <1:20 Titer (<1:20); P-ANCA <1:20 Titer (<1:20)
[2018-03-06 17:55] LABS: EBV-VCA (IgG) >8.0 AI
[2018-03-06 18:40] LABS: Iron Saturation 51.16 (15.00-50.00)
--- NOTE | 2018-03-06 20:18 | P.PN ---
Subjective Progress Note Date: 03/06/18 (Delayed charting patient seen at 0900) Principal diagnosis: abdominal pain Patient is a 27-year-old male with past medical history of intravenous drug use with heroin and methamphetamine, seizure disorder, and tobacco abuse who presented to the ER with complaints of weakness, abdominal pain, and vomiting. In the ER he was noted to have significantly elevated liver enzymes. He was hemodynamically stable. He was admitted for further monitoring. GI was consulted. He was subsequently found have positive hepatitis C antibody. They're to multiple slightly high at 700. FARIDA is pending. Liver ultrasound was consistent with possible chronic cholecystitis but no stone was identified or common bile and common hepatic duct were not able to be visualized. GI ordered hepatitis C genotype and RNA as well as EBV and CMV cytology. Liver enzymes remained elevated on 03/06. Patient seen and examined at bedside. Anxious about still being in the hospital. Still having abdominal pain slightly better. Was nauseous last night not resolved. No chest pain, shortness of breath, or diarrhea. Discussed with patient importance of staying for full evaluation of patient is in agreement. Objective - Vital Signs Vital signs: Vital Signs Temp 98.2 F 03/06/18 12:40 Pulse 62 03/06/18 16:00 Resp 16 03/06/18 16:00 BP 120/76 03/06/18 12:40 Pulse Ox 99 03/06/18 12:40 Intake & Output 03/06/18 03/06/18 03/07/18 06:59 18:59 06:59 Intake Total 480 1680 Balance 480 1680 Weight 73.936 kg Intake: Oral 480 1680 Other: Voiding Method Toilet Toilet # Voids 2 2 - Exam General: Ill-appearing, no distress, appears at stated age Derm: warm, dry Head: atraumatic, normocephalic, symmetric Eyes: EOMI, no lid lag, anicteric sclera Mouth: no lip lesion, mucus membranes moist Cardiovascular: S1S2 reg, no murmur, positive posterior tibial pulse bilateral, Lungs: CTA bilateral, no rhonchi, no rales , no accessory muscle use Abdominal: soft, tender to palpation right upper quadrant, no guarding, no appreciable organomegaly Ext: no gross muscle atrophy, no edema, no contractures Neuro: CN II-XI grossly intact, no focal neuro deficits Psych: Alert, oriented, appropriate affect - Labs CBC & Chem 7: 03/06/18 07:16 03/06/18 07:16 Labs: Abnormal Lab Results - Last 24 Hours (Table) 03/06/18 03/06/18 03/06/18 Range/Units 07:16 07:16 07:16 INR 1.3 H (<1.2) Creatinine 0.63 L (0.66-1.25) mg/dL Iron (65-175) ug/dL Iron Saturation (15.00-50.00) Total Bilirubin 4.1 H (0.2-1.3) mg/dL AST 1952 H (17-59) U/L ALT 2388 H (21-72) U/L Alkaline Phosphatase 161 H (38-126) U/L EBV Capsid Ag IgG Intrp POSITIVE H (NEGATIVE) EBV Nuc Ag IgG Interp POSITIVE H (NEGATIVE) 03/06/18 Range/Units 07:20 INR (<1.2) Creatinine (0.66-1.25) mg/dL Iron 177 H (65-175) ug/dL Iron Saturation 51.16 H (15.00-50.00) Total Bilirubin (0.2-1.3) mg/dL AST (17-59) U/L ALT (21-72) U/L Alkaline Phosphatase (38-126) U/L EBV Capsid Ag IgG Intrp (NEGATIVE) EBV Nuc Ag IgG Interp (NEGATIVE) Assessment and Plan Assessment: Acute hepatitis with positive hepatitis C antibody -Await hepatitis C genotyping and RNA -GI recommendations appreciated- Liver MRI today -Await CMV and EBV evaluation -Repeat CMP in a.m. -Outpatient GI follow-up Abdominal pain, secondary to above -Continue with Motrin and [place] as needed for pain History of IVDA -Continue remission -We'll check HIV with current hepatitis C positive Tobacco abuse -Cessation -Nicotine replacement DVT prophylaxis: SCDs Discussed with: Patient, nursing Anticipated discharge: 24-[address]: home A total of 25 minutes was spent on the care of this complex patient more than 50 % of the time was spent in counseling and care coordination.
--- NOTE | 2018-03-06 20:39 | MR ---
EXAMINATION TYPE: MR liver wo/w con and mrcp DATE OF EXAM: 03/06/2018 COMPARISON: HISTORY: Acute Hepatitis Standard multiplanar, multisequence MRI departmental protocol Multiplanar, multisequence images of the liver were acquired. Diffusion weighted imaging was performe d. The contrast was gadolinium this 7 mL. FINDINGS: Liver shows no focal defect. There is increased signal around the portal venous system on t he T2 images related to periportal edema. The spleen is large and measures 13 cm. I see no evidence o f a pancreatic mass. Kidneys have normal size and contour. There is no hydronephrosis. There is no adrenal mass. There is no sign of retroperitoneal adenopathy. There is minimal ascites fluid. There is no sign of pleural ef fusion. There is fluid around the gallbladder. The bile ducts are not dilated. Pancreatic duct is not dilated. The common bile duct is not well seen. Gallbladder has normal size and no sign of wall thickening. IMPRESSION: No dilated ducts. Periportal edema consistent with nonspecific hepatitis. Mild splenomegaly. Mild asc ites. No gallbladder abnormality identified.
[2018-03-06 22:17] LABS: HIV 1 AB Non-Reactive (Non-Reactive); HIV AB P24 Non-Reactive (Non-Reactive); HIV P24 AG Non-Reactive (Non-Reactive)
[2018-03-07 07:28] LABS: INR 1.2 (<1.2); Prothrombin Time 11.8 sec (9.0-12.0)
[2018-03-07 07:34] LABS: Albumin 3.8 g/dL (3.5-5.0); Alkaline Phosphatase 188 U/L (38-126); Anion Gap 6 mmol/L; Blood Urea Nitrogen 15 mg/dL (9-20); Calcium 9.5 mg/dL (8.4-10.2); Carbon Dioxide 30 mmol/L (22-30); Chloride 102 mmol/L (98-107); Glucose 96 mg/dL (74-99); Potassium 4.8 mmol/L (3.5-5.1); Sodium 138 mmol/L (137-145); Total Protein 7.2 g/dL (6.3-8.2)
[2018-03-07 08:14] LABS: ALT 2711 U/L (21-72); AST 2475 U/L (17-59)
[2018-03-07] MEDS: NICOTINE 14MG/24HR PATCH TRANSDERM SCH (08:59)
[2018-03-07] MEDS ORDERED: ALPRAZolam 1 MG TAB PO PRN (10:34)
--- NOTE | 2018-03-07 11:54 | P.PN ---
Subjective Progress Note Date: 03/07/18 Principal diagnosis: Hepatitis Admitted with acute hepatitis. Hepatitis C reactive antibody. Feels well requesting discharge. Minimal mild midepigastric right upper quadrant tenderness. INR stable at 1.2. Total bilirubin stable 4.0. AST ALT increased 2475/2711. Alk phos 188. Afebrile. Viral studies reviewed consistent with previous exposure. HIV negative. MARY negative. P-ANCA less than 1:20. MRCP no dilated ducts. Periportal edema consistent with nonspecific hepatitis with mild ascites and splenomegaly. Gallbladder abnormality identified. Objective - Vital Signs Vital signs: Vital Signs Temp 97.3 F L 03/07/18 05:43 Pulse 50 L 03/07/18 05:43 Resp 16 03/07/18 05:43 BP 101/56 03/07/18 05:43 Pulse Ox 99 03/07/18 05:43 Intake & Output 03/06/18 03/07/18 03/07/18 18:59 06:59 18:59 Intake Total 1680 590 Balance 1680 590 Weight 73.936 kg Intake: Oral 1680 590 Other: Voiding Method Toilet Toilet Toilet # Voids 2 1 - Exam General appearance: The patient is alert, oriented, in no acute distress. Jaundice. HET: Head is normocephalic and atraumatic. Pupils are equal and reactive. Sclerae icterus. Oropharynx is clear without lesions. Neck: Supple without lymphadenopathy. Trachea midline. Heart: S1 S2. Regular rate and rhythm. Lungs: No crackles or wheezes are heard. Abdomen: Soft, mild right upper quadrant tenderness, nondistended with bowel sounds. No peritoneal signs. No palpable organomegaly or masses. Extremities: Normal skin color and turgor. No cyanosis, rash, ulceration, clubbing, or edema. Radial and pedal pulses are 2/4 bilaterally. Neurological: No focal deficits. Strength and sensation are grossly intact. - Labs CBC & Chem 7: 03/06/18 07:16 03/07/18 07:13 Labs: Abnormal Lab Results - Last 24 Hours (Table) 03/06/18 03/06/18 03/07/18 Range/Units 07:16 07:20 07:13 INR 1.2 H (<1.2) Iron 177 H (65-175) ug/dL Iron Saturation 51.16 H (15.00-50.00) Ferritin 902.0 H (22.0-322.0) ng/mL Total Bilirubin (0.2-1.3) mg/dL AST (17-59) U/L ALT (21-72) U/L Alkaline Phosphatase (38-126) U/L EBV Capsid Ag IgG Intrp POSITIVE H (NEGATIVE) EBV Nuc Ag IgG Interp POSITIVE H (NEGATIVE) 03/07/18 Range/Units 07:13 INR (<1.2) Iron (65-175) ug/dL Iron Saturation (15.00-50.00) Ferritin (22.0-322.0) ng/mL Total Bilirubin 4.0 H (0.2-1.3) mg/dL AST 2475 H (17-59) U/L ALT 2711 H (21-72) U/L Alkaline Phosphatase 188 H (38-126) U/L EBV Capsid Ag IgG Intrp (NEGATIVE) EBV Nuc Ag IgG Interp (NEGATIVE) Assessment and Plan (1) Acute hepatitis Narrative/Plan: 27-year-old male admitted with multiple constitutional symptoms such as nausea vomiting fatigue weakness darker colored urine without fever and mild midepigastric right upper quadrant abdominal pain with grossly elevated transaminases hyperbilirubinemia jaundice consistent with acute hepatocellular injury possible drug-induced possible viral. Obstructive jaundice felt to be less likely even though bile ducts could not be seen on US imaging. Urinalysis detected methamphetamine and amphetamine usage. An underlying chronic hepatitis C infection cannot be excluded with positive hepatitis C reactive antibody. Current Visit: Yes Status: Acute Code(s): B17.9 - ACUTE VIRAL HEPATITIS, UNSPECIFIED SNOMED Code(s): 73308905 (2) Hepatitis C antibody positive in blood Narrative/Plan: History of intravenous drug abuse possible chronic hepatitis C Current Visit: Yes Status: Acute Code(s): R76.8 - OTHER SPECIFIED ABNORMAL IMMUNOLOGICAL FINDINGS IN SERUM SNOMED Code(s): 023545592 (3) History of heroin abuse Current Visit: Yes Status: Acute Code(s): Z87.898 - PERSONAL HISTORY OF OTHER SPECIFIED CONDITIONS SNOMED Code(s): 541478895 (4) Abdominal pain Current Visit: Yes Status: Acute Code(s): R10.9 - UNSPECIFIED ABDOMINAL PAIN SNOMED Code(s): 33106905 (5) Nausea & vomiting Current Visit: Yes Status: Acute Code(s): R11.2 - NAUSEA WITH VOMITING, UNSPECIFIED SNOMED Code(s): 89984423 Plan: 1. Viral studies reviewed. Additional hepatitis C testing including quantitative measurement and genotype requested. 2. Diet as tolerated supportive measures. Transaminases have increased today advise another 24 hours of observation repeat CMP PT/INR in a.m; however patient declined and is requesting discharge. Case was discussed with Dr. elaine mccain. Advise repeat CMP PT/INR CBC in 48 hours and return to office on Saturday for reevaluation. Patient understands that his clinical course could worsen and to return to the emergency room if he develops fever or worsening abdominal pain or jaundice. Patient verbalized understanding of recommendations. Case was discussed with Dr. Rolanda Yap she will evaluate patient on Saturday. Avoid hepatotoxic medications. No alcohol or acetaminophen. Assessment and plan a care discussed with Dr. Cherry
[2018-03-07 12:46] VITALS: BP 123/78; PULSE 61; RESP 18; TEMP 97.9
[2018-03-07 14:51] LABS: Liver/Kidney Microsome Antibod 2.6 UNITS (<=20)
--- NOTE | 2018-03-07 19:51 | P.DS ---
Providers Date of admission: 03/04/18 13:42 Expected date of discharge: 03/07/18 Attending physician: Rei Lopez MD Consults: 03/04/18 13:42 Consult Physician Urgent Consulting Provider: Dawit Cherry Consult Reason/Comments: Hepatitis Do you want consulting provider notified?: Yes Primary care physician: Stated None Hospital Course: Discharge Diagnosis: Acute hepatitis Hepatitis C Tobacco abuse Abdominal pain History of intravenous drug use Hospital Course: Patient is a 27-year-old male with past medical history of intravenous drug use with heroin and methamphetamine, seizure disorder, and tobacco abuse who presented to the ER with complaints of weakness, abdominal pain, and vomiting. In the ER he was noted to have significantly elevated liver enzymes. He was hemodynamically stable. He was admitted for further monitoring. GI was consulted. He was subsequently found have positive hepatitis C antibody. They're to multiple slightly high at 700. FARIDA is pending. Liver ultrasound was consistent with possible chronic cholecystitis but no stone was identified or common bile and common hepatic duct were not able to be visualized. GI ordered hepatitis C genotype and RNA which is still pending. CMV and EBV titers came back negative for acute reactant. MRI of the liver showed hepatitis but no other significant findings. Patient's liver enzymes remained elevated. We had ideally want to stay for closer observation however patient stated he wanted to leave the hospital. We therefore wanted to ensure that he got adequate follow-up. Appointment was made with GI for 03/10 at 3:15 PM. He was given a prescription to obtain a CBC, CMP, PT/INR prior to his appointment. He is given specific instructions to return to the hospital if he develops worsening abdominal pain, yellowing of the skin and eyes, dark urine, fatigue, or fevers. We have again expressed to the patient had if his liver continues to worsen can lead to progressive problems including kidney dysfunction, fluid retention and even . Patient is aware of the risks but would like to leave the hospital and has therefore been discharged with the best arrangements we can make for safe follow-up. I have also referred to Dr. Esquivel for a primary care provider. Patient seen and examined at bedside. Abdominal pain resolved, no nausea, no vomiting, no diarrhea Vital signs reviewed and stable. General: non toxic, no distress, appears at stated age Derm: warm, dry Head: atraumatic, normocephalic, symmetric Eyes: EOMI, no lid lag, anicteric sclera Mouth: no lip lesion, mucus membranes moist Cardiovascular: S1S2 reg, no murmur, positive posterior tibial pulse bilateral, Lungs: CTA bilateral, no rhonchi, no rales , no accessory muscle use Abdominal: soft, nontender to palpation, no guarding, no appreciable organomegaly Ext: no gross muscle atrophy, no edema, no contractures Neuro: CN II-XI grossly intact, no focal neuro deficits Psych: Alert, oriented, appropriate affect A total of 45 minutes of time were spent preparing this complex discharge summary . Pertinent Studies: Liver MRI-hepatitis, normal pulse ducts Abdominal ultrasound-no masses or liver enlargement, ducts not visualized Patient Condition at Discharge: Stable Plan - Discharge Summary Discharge Rx Participant: Yes New Discharge Prescriptions: Continue No Known Home Medications Discharge Medication List No Known Home Medications 12/05/17 [History] Follow up Appointment(s)/Referral(s): Amanda Esquivel MD [STAFF PHYSICIAN] - 1 Week (Patient to call Dr. Esquivel's office Saturday morning to schedule follow up appointment. The office is closed at time of discharge. ) Rolanda Yap MD [STAFF PHYSICIAN] - 03/10/18 3:15 pm Ambulatory/Diagnostic Orders: Complete Blood Count w/diff [LAB.AMB] Time Frame: 03/09/18, Location: None Selected Comprehensive Metabolic Panel [LAB.AMB] Time Frame: 03/09/18, Location: None Selected Prothrombin Time INR [LAB.AMB] Time Frame: 03/09/18, Location: None Selected Patient Instructions/Handouts: Acute Abdominal Pain (DC), Jaundice (DC) Activity/Diet/Wound Care/Special Instructions: regular diet activity as tolerated Return to the ER if you develop worsening abdominal pain, yellowing of the skin and eyes, dark urine, fatigue, or fevers. Discharge/Stand Alone Forms: Work/Release Restrictions Form Discharge Disposition: HOME SELF-CARE Pending Studies Pending Results: Hepatitis C genotype and viral RNA
== END 2018-03-07 12:50 | disposition home or self-care (01) | DRG 442 ==
LOC: EC 10:56 → 4MS4W 13:42 → 5MS5E 17:14
PROVIDERS: ADMIT Family Medicine; ATTEND Family Medicine
DX: B17.9 Acute viral hepatitis, unspecified (principal); R18.8 Other ascites; F17.200 Nicotine dependence, unspecified, uncomplicated; M41.9 Scoliosis, unspecified; R76.8 Other specified abnormal immunological findings in serum
CPT/HCPCS: 36415; 74183; 76705; 80053; 80074; 80306; 80320; 81003; 82103; 82150; 82390; 82728; 83516; 83520; 83540; 83550; 83690; 85025; 85610; 85730; 86038; 86255; 86376; 86644; 86645; 86663; 86664; 86665; 86803; 87390; 87522; 87902; 96360; 96361; 99285

== ENCOUNTER 2018-06-13 11:00 | Emergency (ER) | payer OTHER ==
[2018-06-13 11:08] VITALS: BP 129/80; PULSE 76; RESP 20; TEMP 97.9
--- NOTE | 2018-06-13 11:15 | ED ---
Lower Extremity Injury HPI - General Chief Complaint: Extremity Injury, Lower Stated Complaint: Foot injury Time Seen by Provider: 06/13/18 11:09 Source: patient, RN notes reviewed, old records reviewed Mode of arrival: ambulatory Limitations: no limitations - History of Present Illness Initial Comments: Patient is a 27-year-old male presents return here to play right foot pain. Patient reports that he was upset one week ago. He reports he kicked a table. He states since that time has had pain over the first metatarsal. Patient has had some pain with ambulation. He denies any fevers or chills, chest pain, shortness of breath, peripheral paresthesias. - Related Data Previous Rx's Medication Instructions Recorded Ibuprofen 600 mg PO TID #20 tablet 06/13/18 Allergies Allergy/AdvReac Type Severity Reaction Status Date / Time No Known Allergies Allergy Verified 06/13/18 11:30 Review of Systems ROS Statement: Those systems with pertinent positive or pertinent negative responses have been documented in the HPI. ROS Other: All systems not noted in ROS Statement are negative. Past Medical History Past Medical History: Seizure Disorder Additional Past Medical History / Comment(s): DDD, scoliosis, ADHD History of Any Multi-Drug Resistant Organisms: None Reported Additional Past Surgical History / Comment(s): facial surgery after dog bite. DDD , scoliosis Past Anesthesia/Blood Transfusion Reactions: No Reported Reaction Additional Past Anesthesia/Blood Transfusion Reaction / Comment(s): clausterphobia Past Psychological History: ADD/ADHD, Schizoaffective Disorder Smoking Status: Current every day smoker Past Alcohol Use History: Rare Past Drug Use History: Marijuana - Past Family History Mother Additional Family Medical History / Comment(s): psych issues , anger issues, ddd , crohns disease Father History Unknown: Yes General Exam - General Exam Comments Initial Comments: This is a 27-year-old male. Alert and oriented. No distress. Limitations: no limitations General appearance: alert, in no apparent distress Head exam: Present: atraumatic, normocephalic, normal inspection Eye exam: Present: normal appearance, PERRL, EOMI. Absent: scleral icterus, conjunctival injection, periorbital swelling ENT exam: Present: normal exam, mucous membranes moist Neck exam: Present: normal inspection. Absent: tenderness, meningismus, lymphadenopathy Respiratory exam: Present: normal lung sounds bilaterally. Absent: respiratory distress, wheezes, rales, rhonchi, stridor Cardiovascular Exam: Present: regular rate, normal rhythm, normal heart sounds. Absent: systolic murmur, diastolic murmur, rubs, gallop, clicks GI/Abdominal exam: Present: soft, normal bowel sounds. Absent: distended, tenderness, guarding, rebound, rigid Extremities exam: Present: normal inspection, full ROM, normal capillary refill. Absent: tenderness, pedal edema, joint swelling, calf tenderness Right Lower Leg exam: Present: normal inspection, full ROM Ankle exam: Present: normal inspection, full ROM Foot/Toe exam: Present: tenderness (Tenderness and soft tissue swelling over the first MTP joint.), swelling. Absent: normal inspection Back exam: Present: normal inspection Neurological exam: Present: alert, oriented X3, CN II-XII intact Psychiatric exam: Present: normal affect, normal mood Skin exam: Present: warm, dry, intact, normal color. Absent: rash Course Vital Signs 06/13/18 11:06 Temperature 97.9 F Pulse Rate 76 Respiratory 20 Rate Blood Pressure 129/80 O2 Sat by Pulse 99 Oximetry Medical Decision Making - Medical Decision Making This Patient is a 27-year-old male presents resort today one week after taking a table. He complains of first metatarsal pain. This time patient's x-ray was reviewed and negative for any acute process. No fractures noted. Patient was placed in Valentino wrap and advised to rest, ice, and elevate the foot. Will discharge Patient with ibuprofen and orthopedic referral. - Radiology Data Radiology results: report reviewed No suspicious osseous abnormality. There may be some mild soft tissue swelling of the first metatarsophalangeal joint space. Disposition Clinical Impression: Contusion of right foot Disposition: HOME SELF-CARE Condition: Good Instructions: Foot Sprain (ED), Foot Contusion (ED) Additional Instructions: Patient advised to follow-up with primary care provider. Return to emergency department if any alarming signs or symptoms occur. Patient should rest, ice, elevate foot. Over the Valentino wrap for helping with swelling. Prescriptions: Ibuprofen 600 mg PO TID #20 tablet Is patient prescribed a controlled substance at d/c from ED?: No Referrals: None,Stated [Primary Care Provider] - 1-2 days Time of Disposition: 12:00
--- NOTE | 2018-06-13 11:49 | XR ---
EXAMINATION TYPE: XR foot complete RT DATE OF EXAM: 06/13/2018 COMPARISON: None HISTORY: Pain great toe, trauma one week prior TECHNIQUE: Three-view right foot FINDINGS: No acute fractures are evident. The great toe appears intact. Joint spaces are preserved. S ome mild soft tissue swelling at the first metatarsophalangeal joint space is present. IMPRESSION: 1. No suspicious acute osseous abnormality. 2. There may be some mild soft tissue swelling at the first metatarsophalangeal joint space.
== END 2018-06-13 12:09 | disposition home or self-care (01) ==
LOC: EC 11:00
DX: S90.31XA Contusion of right foot, initial encounter (principal); F17.200 Nicotine dependence, unspecified, uncomplicated; W22.8XXA Striking against or struck by other objects, initial encounter; Y92.009 Unspecified place in unspecified non-institutional (private) residence as the place of occurrence of the external cause
CPT/HCPCS: 99284

== ENCOUNTER 2019-02-28 17:46 | Emergency (ER) | payer OTHER ==
[2019-02-28 17:59] VITALS: BP 123/83; PULSE 96; RESP 18; TEMP 98.8
[2019-02-28] MEDS ORDERED: ONDANSETRON 4 MG/2 ML VIAL IVP STA (18:39)
[2019-02-28] MEDS ORDERED: SODIUM CHLORIDE 0.9% 500 ML 500 ML IV ONE (18:39)
[2019-02-28] MEDS ORDERED: FAMOTIDINE 20 MG/2 ML VIAL IV STA (18:39)
[2019-02-28] MEDS ORDERED: SODIUM CHLORIDE 0.9% 1,000 ML IV ONE (18:39)
[2019-02-28] MEDS ORDERED: KETOROLAC 30 MG/ML 1 ML VIAL IVP STA (18:39)
--- NOTE | 2019-02-28 18:51 | ED ---
General Adult HPI - General Chief complaint: Extremity Injury, Lower Stated complaint: cellulitis Time Seen by Provider: 02/28/19 18:06 Source: patient Mode of arrival: ambulatory Limitations: no limitations - History of Present Illness Initial comments: 28-year-old male patient presents to the emergency department today for evaluation of right lower leg swelling, pain, and redness. Patient states that 2 weeks ago he injured the leg, states he fell and hit it on a metal shelf. Patient states he did sustain a deep wound to the pryor. Patient states over the last two days he has developed redness, pain, and significant swelling to the right lower leg. He denies fever or chills, but states that he has been vomiting for the last 2-3 days. Patient states he has been unable to keep down any food or fluids. States his emesis is bilious. He does have a history of hepatitis C. States he smokes marijuana, but denies any other drug use. Patient denies any recent rash, shortness breath, chest pain, diarrhea, constipation, back pain, numbness, tingling, dizziness, weakness, hematuria, dysuria, urinary urgency, urinary frequency, headache, visual changes, or any other complaints. He was evaluated at [facility] yesterday and diagnosed with cellulitis. He was given a prescription for Keflex and Doxycycline. - Related Data Previous Rx's Medication Instructions Recorded Ibuprofen 600 mg PO TID #20 tablet 06/13/18 Allergies Allergy/AdvReac Type Severity Reaction Status Date / Time codeine AdvReac Itching Verified 02/28/19 17:54 Review of Systems ROS Statement: Those systems with pertinent positive or pertinent negative responses have been documented in the HPI. ROS Other: All systems not noted in ROS Statement are negative. Past Medical History Past Medical History: Seizure Disorder Additional Past Medical History / Comment(s): DDD, scoliosis, ADHD History of Any Multi-Drug Resistant Organisms: None Reported Additional Past Surgical History / Comment(s): facial surgery after dog bite. DDD , scoliosis Past Anesthesia/Blood Transfusion Reactions: No Reported Reaction Additional Past Anesthesia/Blood Transfusion Reaction / Comment(s): clausterphobia Past Psychological History: ADD/ADHD, Bipolar, Schizophrenia Smoking Status: Current every day smoker Past Alcohol Use History: Rare Past Drug Use History: Marijuana - Past Family History Mother Additional Family Medical History / Comment(s): psych issues , anger issues, ddd, crohns disease Father History Unknown: Yes General Exam Limitations: no limitations General appearance: alert, in no apparent distress, other (This is a well- developed, well-nourished adult male patient in no acute distress. Vital signs upon presentation are temperature 98.8F, pulse 96, respirations 18, blood pressure 123/83, pulse ox 99% on room air.) Respiratory exam: Present: normal lung sounds bilaterally. Absent: respiratory distress, wheezes, rales, rhonchi, stridor Cardiovascular Exam: Present: regular rate, normal rhythm, normal heart sounds. Absent: systolic murmur, diastolic murmur, rubs, gallop, clicks GI/Abdominal exam: Present: soft, normal bowel sounds. Absent: distended, tenderness, guarding, rebound, rigid Extremities exam: Present: full ROM, tenderness (right lower leg tenderness), normal capillary refill, other (There is small scabbed lesion to the mid pryor right lower leg. There is circumferential erythema and swelling to the right lower leg extending from the knee to the ankle. ). Absent: normal inspection, pedal edema, joint swelling, calf tenderness Neurological exam: Present: alert, oriented X3, CN II-XII intact Psychiatric exam: Present: normal affect, normal mood Skin exam: Present: warm, dry, intact, normal color. Absent: rash Course Vital Signs 02/28/19 17:54 Temperature 98.8 F Pulse Rate 96 Respiratory 18 Rate Blood Pressure 123/83 O2 Sat by Pulse 99 Oximetry Medical Decision Making - Medical Decision Making 28-year-old male patient presented to the emergency department today for evaluation of pain, swelling, redness to the right lower extremity. Patient was seen and evaluated at [facility] yesterday and was given prescriptions for doxycycline and Keflex. Patient states he did start the medication but he still having pain so wanted to be evaluated here. Labs, fluids, meds were ordered. When nurse went in to begin the workup patient refused stating that we were too busy for him and he wanted to leave. Patient left the department without receiving any testing. Refused to wait for AMA form. Disposition Clinical Impression: Cellulitis of right lower extremity, Left against medical advice Disposition: Left Against Medical Advice Condition: Undetermined Is patient prescribed a controlled substance at d/c from ED?: No Referrals: None,Stated [Primary Care Provider] - 1-2 days
== END 2019-02-28 19:00 | disposition left against medical advice (07) ==
LOC: EC 17:46
DX: L03.115 Cellulitis of right lower limb (principal); F17.200 Nicotine dependence, unspecified, uncomplicated; Z88.5 Allergy status to narcotic agent; Z91.81 History of falling; Z53.29 Procedure and treatment not carried out because of patient's decision for other reasons
CPT/HCPCS: 99283

== ENCOUNTER 2019-06-07 04:40 | Emergency (ER) | payer OTHER ==
[2019-06-07 04:51] VITALS: RESP 20
[2019-06-07] MEDS ORDERED: AMOXICILLIN 875 MG TAB PO STA (05:20)
--- NOTE | 2019-06-07 05:20 | ED ---
ENT HPI - General Chief complaint: Dental/Oral Stated complaint: Dental Pain Time Seen by Provider: 06/07/19 05:12 Source: patient Mode of arrival: ambulatory Limitations: no limitations - History of Present Illness MD complaint: tooth pain Onset/Timin -: days(s) Location: tooth # (32) Severity: moderate Quality: aching Consistency: constant Improves with: none Worsens with: eating Associated Symptoms: toothache - Related Data Previous Rx's Medication Instructions Recorded Ibuprofen 600 mg PO TID #20 tablet 06/13/18 Amoxicillin 875 mg PO Q12HR #20 tablet 06/07/19 Allergies Allergy/AdvReac Type Severity Reaction Status Date / Time codeine AdvReac Itching Verified 06/07/19 04:51 Review of Systems ROS Statement: Those systems with pertinent positive or pertinent negative responses have been documented in the HPI. ROS Other: All systems not noted in ROS Statement are negative. Constitutional: Denies: fever, chills ENT: Reports: dental pain Respiratory: Denies: cough, dyspnea Neurological: Denies: headache Past Medical History Past Medical History: Seizure Disorder Additional Past Medical History / Comment(s): DDD, scoliosis, ADHD, HEP C History of Any Multi-Drug Resistant Organisms: None Reported Additional Past Surgical History / Comment(s): facial surgery after dog bite. DDD , scoliosis Past Anesthesia/Blood Transfusion Reactions: No Reported Reaction Additional Past Anesthesia/Blood Transfusion Reaction / Comment(s): clausterphobia Past Psychological History: ADD/ADHD, Bipolar, Schizophrenia Smoking Status: Current every day smoker Past Alcohol Use History: Abuse, Daily, Heavy Past Drug Use History: Marijuana - Past Family History Mother Additional Family Medical History / Comment(s): psych issues , anger issues, ddd, crohns disease Father History Unknown: Yes General Exam Limitations: no limitations General appearance: alert, in no apparent distress Head exam: Present: atraumatic, normocephalic Eye exam: Present: normal appearance. Absent: scleral icterus, conjunctival injection ENT exam: Present: mucous membranes moist, other (there is impaction of tooth #32 on #31. no abscess evident.) Neck exam: Present: normal inspection, full ROM. Absent: tenderness, meningismus, lymphadenopathy Neurological exam: Present: alert Skin exam: Present: warm, dry, intact, normal color. Absent: rash Course Vital Signs 06/07/19 04:48 Temperature 98.5 F Pulse Rate 87 Respiratory 20 Rate Blood Pressure 158/95 O2 Sat by Pulse 99 Oximetry Disposition Clinical Impression: Impacted tooth Disposition: HOME SELF-CARE Condition: Good Instructions (If sedation given, give patient instructions): Toothache (ED) Prescriptions: Amoxicillin 875 mg PO Q12HR #20 tablet Is patient prescribed a controlled substance at d/c from ED?: No Referrals: None,Stated [Primary Care Provider] - 1-2 days Chaka Coello DDS [STAFF PHYSICIAN] - 1-2 days
[2019-06-07 05:33] VITALS: BP 132/77; PULSE 77; TEMP 97.7
== END 2019-06-07 05:33 | disposition home or self-care (01) ==
LOC: EC 04:40
DX: K01.1 Impacted teeth (principal); F17.200 Nicotine dependence, unspecified, uncomplicated; Z88.5 Allergy status to narcotic agent
CPT/HCPCS: 99282

== ENCOUNTER 2020-10-01 | Emergency (ER) | payer OTHER ==
--- NOTE | 2020-10-01 20:21 | ED ---
General Adult HPI - General Stated complaint: Overdose Time Seen by Provider: 10/01/20 20:17 Source: patient, EMS Mode of arrival: EMS Limitations: no limitations - History of Present Illness Initial comments: Patient is a 30-year-old male presenting to the emergency department following concern for overdose. Patient originally denied this and then later admitted to EMS. Patient does admit to using IV heroin. Patient was found face down in a parking lot. EMS did provide 0.5 of Narcan with resolution of symptoms. Patient became alert and appropriate. Patient states he does not want to be here and is scared of getting the coronavirus. Patient denies any significant injury. Patient has no complaints at this time. - Related Data Previous Rx's Medication Instructions Recorded Ibuprofen 600 mg PO TID #20 tablet 06/13/18 Amoxicillin 875 mg PO Q12HR #20 tablet 06/07/19 Allergies Allergy/AdvReac Type Severity Reaction Status Date / Time codeine AdvReac Itching Verified 06/07/19 04:51 Review of Systems ROS Statement: Those systems with pertinent positive or pertinent negative responses have been documented in the HPI. ROS Other: All systems not noted in ROS Statement are negative. Constitutional: Denies: fever Eyes: Denies: eye pain ENT: Denies: ear pain Respiratory: Denies: cough Cardiovascular: Denies: chest pain Endocrine: Denies: fatigue Gastrointestinal: Denies: abdominal pain Genitourinary: Denies: urgency Musculoskeletal: Denies: back pain Skin: Denies: rash Neurological: Denies: weakness Psychiatric: Reports: anxiety. Denies: suicidal thoughts Past Medical History Past Medical History: Seizure Disorder Additional Past Medical History / Comment(s): DDD, scoliosis, ADHD, HEP C History of Any Multi-Drug Resistant Organisms: None Reported Additional Past Surgical History / Comment(s): facial surgery after dog bite. DDD , scoliosis Past Anesthesia/Blood Transfusion Reactions: No Reported Reaction Additional Past Anesthesia/Blood Transfusion Reaction / Comment(s): clausterphobia Past Psychological History: ADD/ADHD, Bipolar, Schizophrenia Past Alcohol Use History: Abuse, Daily, Heavy Past Drug Use History: Marijuana - Past Family History Mother Additional Family Medical History / Comment(s): psych issues , anger issues, ddd, crohns disease Father History Unknown: Yes General Exam Limitations: no limitations General appearance: alert, in no apparent distress Head exam: Present: atraumatic Eye exam: Present: normal appearance, PERRL Neck exam: Absent: tenderness Respiratory exam: Present: normal lung sounds bilaterally Cardiovascular Exam: Present: regular rate, normal rhythm GI/Abdominal exam: Present: soft. Absent: tenderness Extremities exam: Present: normal inspection Neurological exam: Present: alert, oriented X3, normal gait Psychiatric exam: Present: normal affect, normal mood Skin exam: Present: normal color Medical Decision Making - Medical Decision Making Patient advised to be observed for 45-60 minutes to ensure that he does not relapsed when Narcan wears off. Patient states he is fine and refuses this. Patient does demonstrate medical decision making. Patient is alert and oriented 3 and does demonstrate steady gait. Patient will leave AGAINST MEDICAL ADVICE. Disposition Clinical Impression: Heroin overdose Disposition: Left Against Medical Advice Instructions (If sedation given, give patient instructions): Adult Overdose (ED), Opioid Safety (ED), Narcotic Use Disorder (ED) Additional Instructions: Patient left prior to receiving discharge instructions Is patient prescribed a controlled substance at d/c from ED?: No Referrals: None,Stated [Primary Care Provider] - 1-2 days Time of Disposition: 20:21
== END 2020-10-01 20:25 | disposition left against medical advice (07) ==
CPT/HCPCS: 99283

== ENCOUNTER 2021-01-22 21:08 | Emergency (ER) | payer OTHER ==
[2021-01-22 21:17] VITALS: BP 131/97; PULSE 86; RESP 18; TEMP 97.9
--- NOTE | 2021-01-22 21:35 | ED ---
General Adult HPI - General Chief complaint: Alcohol Stated complaint: ETOH Time Seen by Provider: 01/22/21 21:14 Source: patient, EMS Mode of arrival: EMS Limitations: no limitations - History of Present Illness Initial comments: Dictation was produced using [employer] dictation software. please excuse any grammatical, word or spelling errors. Chief Complaint: 30-year-old male brought to the emergency department by EMS for alcohol intoxication History of Present Illness: Patient 30-year-old male is brought to the emergency department for alcohol intoxication. Patient was brought here by EMS. Allegedly he was sleeping in somebody's front yard. [employer] were called and EMS brought patient to the ER. Patient denies any suicidal or homicidal ideation. Denies any medical complaints at this time. The ROS documented in this emergency department record has been reviewed and confirmed by me. Those systems with pertinent positive or negative responses have been documented in the HPI. All other systems are other negative and/or noncontributory. PHYSICAL EXAM: General Impression: Alert and oriented x3, not in acute distress HEENT: Normocephalic atraumatic, extra-ocular movements intact, pupils equal and reactive to light bilaterally, mucous membranes moist. Cardiovascular: Heart regular rate and rhythm Chest: Able to complete full sentences, no retractions, no tachypnea Abdomen: abdomen soft, non-tender, non-distended, no organomegaly Musculoskeletal: Pulses present and equal in all extremities, no peripheral edema Motor: no focal deficits noted Neurological: CN II-XII grossly intact, no focal motor or sensory deficits noted Skin: Intact with no visualized rashes Psych: Normal affect and mood ED course: 30 Year-old well-appearing male presents by EMS for alcohol intoxication. As upon arrival are within acceptable limits. Patient's well- appearing at bedside. Patient not clinically inebriated. He is ambulatory without complications. He is alert and oriented and attentive. Patient has a place to stay nearby that he can walk to. Denies any suicidal or homicidal ideation. Patient does not appear to be psychotic. Patient discharged. - Related Data Home Medications Medication Instructions Recorded Confirmed No Known Home Medications 01/22/21 01/22/21 Allergies Allergy/AdvReac Type Severity Reaction Status Date / Time codeine AdvReac Itching Verified 01/22/21 21:29 Review of Systems ROS Statement: Those systems with pertinent positive or pertinent negative responses have been documented in the HPI. ROS Other: All systems not noted in ROS Statement are negative. Past Medical History Past Medical History: Seizure Disorder Additional Past Medical History / Comment(s): DDD, scoliosis, ADHD, HEP C History of Any Multi-Drug Resistant Organisms: None Reported Additional Past Surgical History / Comment(s): facial surgery after dog bite. DDD , scoliosis Past Anesthesia/Blood Transfusion Reactions: No Reported Reaction Additional Past Anesthesia/Blood Transfusion Reaction / Comment(s): clausterphobia Past Psychological History: ADD/ADHD, Bipolar, Schizophrenia Smoking Status: Current every day smoker Past Alcohol Use History: Abuse, Daily, Heavy Past Drug Use History: Marijuana - Past Family History Mother Additional Family Medical History / Comment(s): psych issues , anger issues, ddd, crohns disease Father History Unknown: Yes General Exam Limitations: no limitations Course Vital Signs 01/22/21 21:11 Temperature 97.9 F Pulse Rate 86 Respiratory 18 Rate Blood Pressure 131/97 O2 Sat by Pulse 98 Oximetry Disposition Clinical Impression: Alcohol intoxication Disposition: HOME SELF-CARE Condition: Good Instructions (If sedation given, give patient instructions): Alcohol Intoxication (ED) Is patient prescribed a controlled substance at d/c from ED?: No Referrals: None,Stated [Primary Care Provider] - 1-2 days
== END 2021-01-22 21:46 | disposition home or self-care (01) ==
LOC: EC 21:08
DX: F10.129 Alcohol abuse with intoxication, unspecified (principal); F17.200 Nicotine dependence, unspecified, uncomplicated; Z88.5 Allergy status to narcotic agent; Y90.9 Presence of alcohol in blood, level not specified
CPT/HCPCS: 99284

== ENCOUNTER 2021-01-22 23:17 | Emergency (ER) | payer OTHER ==
[2021-01-22 23:25] VITALS: TEMP 98.2
--- NOTE | 2021-01-23 00:01 | ED ---
Psych HPI - General Source: patient, EMS, RN notes reviewed, old records reviewed Mode of arrival: EMS Limitations: altered mental status - History of Present Illness MD Complaint: altered mental status Associated Psychiatric Symptoms: homicidal ideation, racing thoughts History of same: Yes Quality: intermittent, changing over time Improves With: none Worsens With: none Context: recent alcohol abuse, recent drug abuse, significant life stressor Associated Symptoms: denies other symptoms Treatments Prior to Arrival: placed on mental health hold <Chaka Causey - Last Filed: 01/23/21 01:25> <Junito Berry - Last Filed: 01/23/21 10:43> - General Chief Complaint: Psychiatric Symptoms Stated Complaint: Mental Health Time Seen by Provider: 01/22/21 23:20 - History of Present Illness Initial Comments: This is a 30-year-old male is brought in under petition by police department for sleeping outside. Patient was found to unresponsive and then found to be combative for the PD. He is petition for evaluation, patient does appear to be done to relieve fluid at least alcohol injury no wheezes he was in the hospital earlier today as well as likely other drugs (Chaka Causey) - Related Data Home Medications Medication Instructions Recorded Confirmed No Known Home Medications 01/22/21 01/23/21 Allergies Allergy/AdvReac Type Severity Reaction Status Date / Time codeine AdvReac Itching Verified 01/23/21 08:05 Review of Systems ROS Other: All systems not noted in ROS Statement are negative. <Chaka Causey - Last Filed: 01/23/21 01:25> ROS Other: All systems not noted in ROS Statement are negative. <Junito Berry - Last Filed: 01/23/21 10:43> ROS Statement: Those systems with pertinent positive or pertinent negative responses have been documented in the HPI. Past Medical History Past Medical History: Seizure Disorder Additional Past Medical History / Comment(s): DDD, scoliosis, ADHD, HEP C History of Any Multi-Drug Resistant Organisms: None Reported Additional Past Surgical History / Comment(s): facial surgery after dog bite. DDD , scoliosis Past Anesthesia/Blood Transfusion Reactions: No Reported Reaction Additional Past Anesthesia/Blood Transfusion Reaction / Comment(s): clausterphobia Past Psychological History: ADD/ADHD, Bipolar, Schizophrenia Smoking Status: Current every day smoker Past Alcohol Use History: Abuse, Daily, Heavy Past Drug Use History: Marijuana - Past Family History Mother Additional Family Medical History / Comment(s): psych issues , anger issues, ddd, crohns disease Father History Unknown: Yes <Chaka Causey - Last Filed: 01/23/21 01:25> General Exam Limitations: no limitations General appearance: alert, in no apparent distress Head exam: Present: atraumatic, normocephalic, normal inspection Eye exam: Present: normal appearance, PERRL, EOMI. Absent: scleral icterus, conjunctival injection, periorbital swelling ENT exam: Present: normal exam, mucous membranes moist Neck exam: Present: normal inspection. Absent: tenderness, meningismus, lymphadenopathy Respiratory exam: Present: normal lung sounds bilaterally. Absent: respiratory distress, wheezes, rales, rhonchi, stridor Cardiovascular Exam: Present: regular rate, normal rhythm, normal heart sounds. Absent: systolic murmur, diastolic murmur, rubs, gallop, clicks GI/Abdominal exam: Present: soft, normal bowel sounds. Absent: distended, tenderness, guarding, rebound, rigid Extremities exam: Present: normal inspection, full ROM, normal capillary refill. Absent: tenderness, pedal edema, joint swelling, calf tenderness Back exam: Present: normal inspection Neurological exam: Present: alert, oriented X3, CN II-XII intact Psychiatric exam: Present: normal affect, normal mood Skin exam: Present: warm, dry, intact, normal color. Absent: rash <Chaka Causey - Last Filed: 01/23/21 01:25> Course <Chaka Causey - Last Filed: 01/23/21 01:25> Vital Signs 01/22/21 01/23/21 01/23/21 23:18 03:00 09:02 Temperature 98.2 F Pulse Rate 62 72 Respiratory 20 17 16 Rate Blood Pressure 130/96 132/72 O2 Sat by Pulse 96 98 Oximetry - Reevaluation(s) Reevaluation #1: 01/23/21 01:26 Medical record is reviewed 01/23/21 01:26 Here for psychiatric evaluation (Chaka Causey) Reevaluation #2: 01/23/21 01:26 Patient was seen and evaluated by psychiatry here in the ER (Chaka Causey) Reevaluation #3: 01/23/21 01:26 Unable to safety plan with patient's a patient will be observed until family can be made contact with a patient can be evaluated by psychiatry (Chaka Causey) Medical Decision Making <Junito Berry - Last Filed: 01/23/21 10:43> - Medical Decision Making 30-year-old male who had presented with alcohol intoxication. Patient was observed in the emergency department until he was sober. He was evaluated by EPS. He is not suicidal or homicidal. He does have a family member that he can stay with. He is alert and oriented with stable vital signs at the time of discharge with no new complaints. (Junito Berry) Disposition <Chaka Causey - Last Filed: 01/23/21 01:25> Is patient prescribed a controlled substance at d/c from ED?: No Time of Disposition: 10:41 <Junito Berry - Last Filed: 01/23/21 10:43> Clinical Impression: Alcohol intoxication Disposition: HOME SELF-CARE Condition: Fair Instructions (If sedation given, give patient instructions): Alcohol Intoxication (ED) Referrals: None,Stated [Primary Care Provider] - 1-2 days Breanna Munoz MD [REFERRING] - 1-2 days
[2021-01-23] MEDS ORDERED: diphenhydrAMINE 50 MG/ML 1 ML VIAL IM STA (01:04)
[2021-01-23] MEDS ORDERED: LORazepam 2 MG/ML INJ IM STA (01:04)
[2021-01-23 04:52] VITALS: BP 132/72; PULSE 72
[2021-01-23 09:43] VITALS: RESP 16
== END 2021-01-23 11:18 | disposition home or self-care (01) ==
LOC: EC 23:17
DX: F10.129 Alcohol abuse with intoxication, unspecified (principal); F17.200 Nicotine dependence, unspecified, uncomplicated; F12.90 Cannabis use, unspecified, uncomplicated; Z88.5 Allergy status to narcotic agent; Y90.9 Presence of alcohol in blood, level not specified
CPT/HCPCS: 82075; 96372 ×2; 99285; J2060; J1200

== ENCOUNTER 2021-01-31 21:16 | Emergency (ER) | payer OTHER ==
[2021-01-31 21:25] VITALS: BP 121/79; PULSE 109; RESP 23; TEMP 98
--- NOTE | 2021-01-31 21:55 | ED ---
Overdose HPI - General Stated Complaint: Overdose Time Seen by Provider: 01/31/21 21:22 Source: EMS Mode of arrival: EMS - History of Present Illness Complaint: accidental overdose -: minutes(s) Context: Accidental Overdose: wanted to get high Treatments Prior to Arrival: narcan - Related Data Home Medications Medication Instructions Recorded Confirmed No Known Home Medications 01/22/21 01/23/21 Allergies Allergy/AdvReac Type Severity Reaction Status Date / Time codeine AdvReac Itching Verified 01/23/21 08:05 Review of Systems ROS Statement: Those systems with pertinent positive or pertinent negative responses have been documented in the HPI. ROS Other: All systems not noted in ROS Statement are negative. Constitutional: Denies: fever, weakness Eyes: Denies: vision change Respiratory: Denies: cough, dyspnea Cardiovascular: Denies: chest pain, palpitations Gastrointestinal: Denies: abdominal pain, nausea, vomiting, diarrhea Musculoskeletal: Denies: back pain Skin: Denies: rash Neurological: Denies: headache, weakness, numbness Psychiatric: Denies: depression, auditory hallucinations, visual hallucinations, homicidal thoughts, suicidal thoughts Past Medical History Past Medical History: Seizure Disorder Additional Past Medical History / Comment(s): DDD, scoliosis, ADHD, HEP C History of Any Multi-Drug Resistant Organisms: None Reported Additional Past Surgical History / Comment(s): facial surgery after dog bite. DDD , scoliosis Past Anesthesia/Blood Transfusion Reactions: No Reported Reaction Additional Past Anesthesia/Blood Transfusion Reaction / Comment(s): clausterphob ia Past Psychological History: ADD/ADHD, Bipolar, Schizophrenia Smoking Status: Current every day smoker Past Alcohol Use History: Abuse, Daily, Heavy Past Drug Use History: Marijuana - Past Family History Mother Additional Family Medical History / Comment(s): psych issues , anger issues, ddd, crohns disease Father History Unknown: Yes General Exam General appearance: alert, in no apparent distress Head exam: Present: atraumatic, normocephalic Eye exam: Present: normal appearance. Absent: scleral icterus, conjunctival injection ENT exam: Present: normal oropharynx Neck exam: Present: normal inspection Respiratory exam: Present: normal lung sounds bilaterally. Absent: respiratory distress, wheezes, rales, rhonchi, stridor Cardiovascular Exam: Present: regular rate, normal rhythm, normal heart sounds. Absent: systolic murmur, diastolic murmur, rubs, gallop GI/Abdominal exam: Present: soft. Absent: distended, tenderness, guarding, rebound, rigid, mass Extremities exam: Present: normal inspection, normal capillary refill. Absent: pedal edema, calf tenderness Back exam: Present: normal inspection Neurological exam: Present: alert, oriented X3, CN II-XII intact. Absent: motor sensory deficit Skin exam: Present: warm, dry, intact, normal color. Absent: rash Course Vital Signs 01/31/21 21:17 Temperature 98 F Pulse Rate 109 H Respiratory 23 Rate Blood Pressure 121/79 O2 Sat by Pulse 97 Oximetry Medical Decision Making - Medical Decision Making This patient is 30-year-old man here for accidental heroin overdose. The patient states that he is leaving. He understands there is risk that the Narcan will wear off and he could labs and on consciousness. Understands risk of . He states he is going to his cousin's house immediately and that he'll be observed. Patient states she will return if there is any problem with this plan Disposition Clinical Impression: Heroin overdose Disposition: Left Against Medical Advice Condition: Good Is patient prescribed a controlled substance at d/c from ED?: No Referrals: None,Stated [Primary Care Provider] - 1-2 days
== END 2021-01-31 22:00 | disposition left against medical advice (07) ==
LOC: EC 21:16
DX: T40.1X1A Poisoning by heroin, accidental (unintentional), initial encounter (principal); G40.909 Epilepsy, unspecified, not intractable, without status epilepticus; F31.9 Bipolar disorder, unspecified; F90.9 Attention-deficit hyperactivity disorder, unspecified type; F17.200 Nicotine dependence, unspecified, uncomplicated; F12.90 Cannabis use, unspecified, uncomplicated
CPT/HCPCS: 99283

== ENCOUNTER 2021-02-08 03:39 | Emergency (ER) | payer OTHER ==
--- NOTE | 2021-02-08 04:09 | ED ---
Lower Extremity Injury HPI - General Chief Complaint: Extremity Injury, Lower Stated Complaint: Leg pain Time Seen by Provider: 02/08/21 03:40 Source: EMS, RN notes reviewed, old records reviewed Mode of arrival: ambulatory Limitations: physical limitation - History of Present Illness Initial Comments: This is a 30-year-old male to the ER for evaluation. Patient Dese for evaluation regards to severe right leg pain related pain and swelling severe his tory is tonight prior to arrival. Patient does have a history of IV drug abuse as well as multiple medical comorbidities. Including hepatitis C. Patient is a poor strain secondary to significant either intoxication or just psychiatric illness MD Complaint: other (Significant right leg pain) -: hour(s) Injury: Leg: Right Place: home Severity: severe Severity scale (1-10): 10 Improves With: nothing Worsens With: weight bearing, movement, palpation Context: other (IV drug abuse) Associated Symptoms: swelling, able to partially bear weight Treatments Prior to Arrival: other (none) - Related Data Home Medications Medication Instructions Recorded Confirmed No Known Home Medications 01/22/21 01/23/21 Allergies Allergy/AdvReac Type Severity Reaction Status Date / Time codeine AdvReac Itching Verified 01/23/21 08:05 Review of Systems ROS Statement: Those systems with pertinent positive or pertinent negative responses have been documented in the HPI. ROS Other: All systems not noted in ROS Statement are negative. Past Medical History Past Medical History: Seizure Disorder Additional Past Medical History / Comment(s): DDD, scoliosis, ADHD, HEP C History of Any Multi-Drug Resistant Organisms: None Reported Additional Past Surgical History / Comment(s): facial surgery after dog bite. DDD , scoliosis Past Anesthesia/Blood Transfusion Reactions: No Reported Reaction Additional Past Anesthesia/Blood Transfusion Reaction / Comment(s): clausterphobia Past Psychological History: ADD/ADHD, Bipolar, Schizophrenia Smoking Status: Current every day smoker Past Alcohol Use History: Abuse, Daily, Heavy Past Drug Use History: Heroin, Marijuana - Past Family History Mother Additional Family Medical History / Comment(s): psych issues , anger issues, ddd, crohns disease Father History Unknown: Yes General Exam Limitations: physical limitation General appearance: alert, anxious, in distress Head exam: Present: atraumatic, normocephalic, normal inspection Eye exam: Present: normal appearance, PERRL, EOMI. Absent: scleral icterus, conjunctival injection, periorbital swelling ENT exam: Present: normal exam, mucous membranes moist Neck exam: Present: normal inspection. Absent: tenderness, meningismus, lymphadenopathy Respiratory exam: Present: normal lung sounds bilaterally. Absent: respiratory distress, wheezes, rales, rhonchi, stridor Cardiovascular Exam: Present: normal rhythm, tachycardia, normal heart sounds. Absent: systolic murmur, diastolic murmur, rubs, gallop, clicks GI/Abdominal exam: Present: soft, normal bowel sounds. Absent: distended, tenderness, guarding, rebound, rigid Extremities exam: Present: full ROM, tenderness (severe), normal capillary refill, calf tenderness (severe), other (Significant right leg pain and swelling tenderness, firmness especially compared to left). Absent: normal inspection, pedal edema, joint swelling Right Lower Leg exam: Present: full ROM, tenderness, swelling Ankle exam: Present: tenderness, swelling Foot/Toe exam: Present: tenderness, swelling Neurovascular tendon exam: Absent: no vascular compromise (diminished pulse RLE), abnormal cap refill, extremity cold to touch, pallor Back exam: Present: normal inspection Neurological exam: Present: alert, oriented X3, CN II-XII intact Psychiatric exam: Present: normal affect, normal mood Skin exam: Present: warm, dry, intact, normal color. Absent: rash Course Vital Signs 02/08/21 02/08/21 02/08/21 03:40 03:47 06:09 Temperature 97.8 F Pulse Rate 110 H 95 62 Respiratory 18 20 20 Rate Blood Pressure 122/91 121/89 104/91 O2 Sat by Pulse 100 100 100 Oximetry 02/08/21 02/08/21 07:06 07:49 Temperature 98.2 F Pulse Rate 67 84 Respiratory 20 18 Rate Blood Pressure 104/83 143/98 O2 Sat by Pulse 98 100 Oximetry - Reevaluation(s) Reevaluation #1: 02/08/21 05:58 Medical record is reviewed 02/08/21 07:18 Patient is a significant rhabdomyolysis Reevaluation #2: 02/08/21 07:19 Pain is severe Reevaluation #3: 02/08/21 07:19 Patient has adequate mildly improved pain control Reevaluation #4: 02/08/21 07:19 patient remains significantly altered, history of drug abuse and history of psychiatric illness - Consultations Consultation #1: Spoke with our on-call vascular surgery who state patient is better off in transport, orthopedics will also not take patient Consultation #2: spoke w Dr Luevano who will take patient at [facility] Spoke with the ER who also are aware of been coming transport Medical Decision Making - Medical Decision Making 30 male to the emergency department for evaluation of severe right lower extremity pain. Right lower extremity is significantly swollen compared to left lower extremity, patient does have a pulse of right lower extremity is significantly,, does have good color is not cold and does have capillary refill. But due to patient's findings and pain he will be transferred to [facility] for orthopedic surgery - Lab Data Result diagrams: 02/08/21 05:43 02/08/21 05:43 Lab Results 02/08/21 02/08/21 02/08/21 Range/Units 05:43 05:43 05:43 WBC 12.8 H (3.8-10.6) k/uL RBC 4.65 (4.30-5.90) m/uL Hgb 15.2 (13.0-17.5) gm/dL Hct 45.0 (39.0-53.0) % MCV 96.8 (80.0-100.0) fL MCH 32.7 (25.0-35.0) pg MCHC 33.8 (31.0-37.0) g/dL RDW 13.1 (11.5-15.5) % Plt Count 212 (150-450) k/uL MPV 8.6 Neutrophils % (Manual) 70 % Band Neuts % (Manual) 7 % Lymphocytes % (Manual) 9 % Monocytes % (Manual) 14 % Neutrophils # (Manual) 9.80 H (1.3-7.7) k/uL Lymphocytes # (Manual) 1.15 (1.0-4.8) k/uL Monocytes # (Manual) 1.79 H (0-1.0) k/uL Nucleated RBCs 0 (0-0) /100 WBC Manual Slide Review Performed PT 10.7 (9.0-12.0) sec INR 1.0 (<1.2) APTT 25.4 (22.0-30.0) sec Sodium (137-145) mmol/L Potassium (3.5-5.1) mmol/L Chloride (98-107) mmol/L Carbon Dioxide (22-30) mmol/L Anion Gap mmol/L BUN (9-20) mg/dL Creatinine (0.66-1.25) mg/dL Est GFR (CKD-EPI)AfAm (>60 ml/min/1.73 sqM) Est GFR (CKD-EPI)NonAf (>60 ml/min/1.73 sqM) Glucose (74-99) mg/dL Plasma Lactic Acid David (0.7-2.0) mmol/L Calcium (8.4-10.2) mg/dL Phosphorus (2.5-4.5) mg/dL Magnesium (1.6-2.3) mg/dL Total Bilirubin (0.2-1.3) mg/dL AST (17-59) U/L ALT (4-49) U/L Alkaline Phosphatase (38-126) U/L Ammonia (<30) umol/L Creatine Kinase (55-170) U/L CK-MB (CK-2) (0.0-2.4) ng/mL Troponin I (0.000-0.034) ng/mL NT-Pro-B Natriuret Pep pg/mL Total Protein (6.3-8.2) g/dL Albumin (3.5-5.0) g/dL Urine Color Dark Brown Urine Appearance Turbid (Clear) Urine RBC 1 (0-5) /hpf Urine WBC 21 H (0-5) /hpf Ur Squamous Epith Cells 3 (0-4) /hpf Urine Bacteria Occasional H (None) /hpf Urine Mucus Rare H (None) /hpf Salicylates mg/dL Urine Opiates Screen (NotDetected) Ur Oxycodone Screen (NotDetected) Urine Methadone Screen (NotDetected) Ur Propoxyphene Screen (NotDetected) Acetaminophen ug/mL Ur Barbiturates Screen (NotDetected) U Tricyclic Antidepress (NotDetected) Ur Phencyclidine Scrn (NotDetected) Ur Amphetamines Screen (NotDetected) U Methamphetamines Scrn (NotDetected) U Benzodiazepines Scrn (NotDetected) Urine Cocaine Screen (NotDetected) U Marijuana (THC) Screen (NotDetected) Serum Alcohol mg/dL 02/08/21 02/08/21 02/08/21 Range/Units 05:43 05:43 05:43 WBC (3.8-10.6) k/uL RBC (4.30-5.90) m/uL Hgb (13.0-17.5) gm/dL Hct (39.0-53.0) % MCV (80.0-100.0) fL MCH (25.0-35.0) pg MCHC (31.0-37.0) g/dL RDW (11.5-15.5) % Plt Count (150-450) k/uL MPV Neutrophils % (Manual) % Band Neuts % (Manual) % Lymphocytes % (Manual) % Monocytes % (Manual) % Neutrophils # (Manual) (1.3-7.7) k/uL Lymphocytes # (Manual) (1.0-4.8) k/uL Monocytes # (Manual) (0-1.0) k/uL Nucleated RBCs (0-0) /100 WBC Manual Slide Review PT (9.0-12.0) sec INR (<1.2) APTT (22.0-30.0) sec Sodium 132 L (137-145) mmol/L Potassium 6.5 H* (3.5-5.1) mmol/L Chloride 98 (98-107) mmol/L Carbon Dioxide 26 (22-30) mmol/L Anion Gap 8 mmol/L BUN 23 H (9-20) mg/dL Creatinine 1.21 (0.66-1.25) mg/dL Est GFR (CKD-EPI)AfAm >90 (>60 ml/min/1.73 sqM) Est GFR (CKD-EPI)NonAf 81 (>60 ml/min/1.73 sqM) Glucose 125 H (74-99) mg/dL Plasma Lactic Acid David 1.7 (0.7-2.0) mmol/L Calcium 8.1 L (8.4-10.2) mg/dL Phosphorus 4.0 (2.5-4.5) mg/dL Magnesium 2.5 H (1.6-2.3) mg/dL Total Bilirubin 0.4 (0.2-1.3) mg/dL AST 1638 H (17-59) U/L ALT 335 H (4-49) U/L Alkaline Phosphatase 160 H (38-126) U/L Ammonia <9 (<30) umol/L Creatine Kinase (55-170) U/L CK-MB (CK-2) (0.0-2.4) ng/mL Troponin I 0.250 H* (0.000-0.034) ng/mL NT-Pro-B Natriuret Pep pg/mL Total Protein 7.6 (6.3-8.2) g/dL Albumin 4.5 (3.5-5.0) g/dL Urine Color Urine Appearance (Clear) Urine RBC (0-5) /hpf Urine WBC (0-5) /hpf Ur Squamous Epith Cells (0-4) /hpf Urine Bacteria (None) /hpf Urine Mucus (None) /hpf Salicylates <1.0 mg/dL Urine Opiates Screen (NotDetected) Ur Oxycodone Screen (NotDetected) Urine Methadone Screen (NotDetected) Ur Propoxyphene Screen (NotDetected) Acetaminophen <10.0 ug/mL Ur Barbiturates Screen (NotDetected) U Tricyclic Antidepress (NotDetected) Ur Phencyclidine Scrn (NotDetected) Ur Amphetamines Screen (NotDetected) U Methamphetamines Scrn (NotDetected) U Benzodiazepines Scrn (NotDetected) Urine Cocaine Screen (NotDetected) U Marijuana (THC) Screen (NotDetected) Serum Alcohol <10 mg/dL 02/08/21 02/08/21 02/08/21 Range/Units 05:43 05:43 05:43 WBC (3.8-10.6) k/uL RBC (4.30-5.90) m/uL Hgb (13.0-17.5) gm/dL Hct (39.0-53.0) % MCV (80.0-100.0) fL MCH (25.0-35.0) pg MCHC (31.0-37.0) g/dL RDW (11.5-15.5) % Plt Count (150-450) k/uL MPV Neutrophils % (Manual) % Band Neuts % (Manual) % Lymphocytes % (Manual) % Monocytes % (Manual) % Neutrophils # (Manual) (1.3-7.7) k/uL Lymphocytes # (Manual) (1.0-4.8) k/uL Monocytes # (Manual) (0-1.0) k/uL Nucleated RBCs (0-0) /100 WBC Manual Slide Review PT (9.0-12.0) sec INR (<1.2) APTT (22.0-30.0) sec Sodium (137-145) mmol/L Potassium (3.5-5.1) mmol/L Chloride (98-107) mmol/L Carbon Dioxide (22-30) mmol/L Anion Gap mmol/L BUN (9-20) mg/dL Creatinine (0.66-1.25) mg/dL Est GFR (CKD-EPI)AfAm (>60 ml/min/1.73 sqM) Est GFR (CKD-EPI)NonAf (>60 ml/min/1.73 sqM) Glucose (74-99) mg/dL Plasma Lactic Acid David (0.7-2.0) mmol/L Calcium (8.4-10.2) mg/dL Phosphorus (2.5-4.5) mg/dL Magnesium (1.6-2.3) mg/dL Total Bilirubin (0.2-1.3) mg/dL AST (17-59) U/L ALT (4-49) U/L Alkaline Phosphatase (38-126) U/L Ammonia (<30) umol/L Creatine Kinase 32659 H* (55-170) U/L CK-MB (CK-2) >800.0 H (0.0-2.4) ng/mL Troponin I (0.000-0.034) ng/mL NT-Pro-B Natriuret Pep 843 pg/mL Total Protein (6.3-8.2) g/dL Albumin (3.5-5.0) g/dL Urine Color Urine Appearance (Clear) Urine RBC (0-5) /hpf Urine WBC (0-5) /hpf Ur Squamous Epith Cells (0-4) /hpf Urine Bacteria (None) /hpf Urine Mucus (None) /hpf Salicylates mg/dL Urine Opiates Screen (NotDetected) Ur Oxycodone Screen (NotDetected) Urine Methadone Screen (NotDetected) Ur Propoxyphene Screen (NotDetected) Acetaminophen ug/mL Ur Barbiturates Screen (NotDetected) U Tricyclic Antidepress (NotDetected) Ur Phencyclidine Scrn (NotDetected) Ur Amphetamines Screen (NotDetected) U Methamphetamines Scrn (NotDetected) U Benzodiazepines Scrn (NotDetected) Urine Cocaine Screen (NotDetected) U Marijuana (THC) Screen (NotDetected) Serum Alcohol mg/dL 02/08/21 Range/Units 05:43 WBC (3.8-10.6) k/uL RBC (4.30-5.90) m/uL Hgb (13.0-17.5) gm/dL Hct (39.0-53.0) % MCV (80.0-100.0) fL MCH (25.0-35.0) pg MCHC (31.0-37.0) g/dL RDW (11.5-15.5) % Plt Count (150-450) k/uL MPV Neutrophils % (Manual) % Band Neuts % (Manual) % Lymphocytes % (Manual) % Monocytes % (Manual) % Neutrophils # (Manual) (1.3-7.7) k/uL Lymphocytes # (Manual) (1.0-4.8) k/uL Monocytes # (Manual) (0-1.0) k/uL Nucleated RBCs (0-0) /100 WBC Manual Slide Review PT (9.0-12.0) sec INR (<1.2) APTT (22.0-30.0) sec Sodium (137-145) mmol/L Potassium (3.5-5.1) mmol/L Chloride (98-107) mmol/L Carbon Dioxide (22-30) mmol/L Anion Gap mmol/L BUN (9-20) mg/dL Creatinine (0.66-1.25) mg/dL Est GFR (CKD-EPI)AfAm (>60 ml/min/1.73 sqM) Est GFR (CKD-EPI)NonAf (>60 ml/min/1.73 sqM) Glucose (74-99) mg/dL Plasma Lactic Acid David (0.7-2.0) mmol/L Calcium (8.4-10.2) mg/dL Phosphorus (2.5-4.5) mg/dL Magnesium (1.6-2.3) mg/dL Total Bilirubin (0.2-1.3) mg/dL AST (17-59) U/L ALT (4-49) U/L Alkaline Phosphatase (38-126) U/L Ammonia (<30) umol/L Creatine Kinase (55-170) U/L CK-MB (CK-2) (0.0-2.4) ng/mL Troponin I (0.000-0.034) ng/mL NT-Pro-B Natriuret Pep pg/mL Total Protein (6.3-8.2) g/dL Albumin (3.5-5.0) g/dL Urine Color Urine Appearance (Clear) Urine RBC (0-5) /hpf Urine WBC (0-5) /hpf Ur Squamous Epith Cells (0-4) /hpf Urine Bacteria (None) /hpf Urine Mucus (None) /hpf Salicylates mg/dL Urine Opiates Screen Detected H (NotDetected) Ur Oxycodone Screen Not Detected (NotDetected) Urine Methadone Screen Not Detected (NotDetected) Ur Propoxyphene Screen Not Detected (NotDetected) Acetaminophen ug/mL Ur Barbiturates Screen Not Detected (NotDetected) U Tricyclic Antidepress Not Detected (NotDetected) Ur Phencyclidine Scrn Not Detected (NotDetected) Ur Amphetamines Screen Not Detected (NotDetected) U Methamphetamines Scrn Not Detected (NotDetected) U Benzodiazepines Scrn Not Detected (NotDetected) Urine Cocaine Screen Detected H (NotDetected) U Marijuana (THC) Screen Detected H (NotDetected) Serum Alcohol mg/dL - Radiology Data Radiology results: report reviewed (X-ray right lower extremity tib-fib is negative for any air, ultrasound negative for DVT), image reviewed Critical Care Time Critical Care Time: Yes Total Critical Care Time: 75 Disposition Clinical Impression: Drug abuse, Acute hepatitis, Hepatitis, Leg edema, right, Rhabdomyolysis, Hyperkalemia, Transaminitis, History of heroin abuse, Compartment syndrome of right lower extremity Narrative: r/o Compartment Syndrome RLE Disposition: OTHER INSTITUTION NOT DEFINED Condition: Serious Is patient prescribed a controlled substance at d/c from ED?: No Referrals: None,Stated [Primary Care Provider] - 1-2 days - Out of Hospital Transfer - Req. Specs Out of Hospital Transfer - Requested Specifics: Other Emergency Center ([facility])
--- NOTE | 2021-02-08 04:37 | XR ---
EXAMINATION TYPE: XR tibia fibula RT DATE OF EXAM: 02/08/2021 COMPARISON: None HISTORY: Leg pain TECHNIQUE: 2 views FINDINGS: Tibia and fibula appear intact. I see no fracture nor dislocation. Knee joint and ankle wilbur nt appear intact. IMPRESSION: Negative right tibia and fibula exam
[2021-02-08] MEDS ORDERED: SODIUM CHLORIDE 0.9% 1,000 ML IV STA ×2 (04:41)
[2021-02-08] MEDS ORDERED: MORPHINE SULFATE 4 MG/ML SYRINGE IV STA (04:41)
[2021-02-08] MEDS ORDERED: LORazepam 2 MG/ML INJ IV STA (04:42)
[2021-02-08 06:14] LABS: Partial Thromboplastin Time 25.4 sec (22.0-30.0); Prothrombin Time 10.7 sec (9.0-12.0)
[2021-02-08 06:18] LABS: Appearance,Urine Turbid (Clear); Color,Urine Dark Brown
[2021-02-08 06:21] LABS: Lactic Acid, Venous 1.7 mmol/L (0.7-2.0)
[2021-02-08 06:25] LABS: Bacteria,Urine Occasional /hpf; Mucus,Urine Rare /hpf; RBC,Urine 1 /hpf (0-5); Squamous Epithelial Cell,Urine 3 /hpf (0-4); WBC,Urine 21 /hpf (0-5)
[2021-02-08 06:30] LABS: ALT 335 U/L (4-49); Acetaminophen <10.0 ug/mL; African American GFR (CKD) >90 (>60 ml/min/1.73 sqM); Albumin 4.5 g/dL (3.5-5.0); Alcohol <10 mg/dL; Alkaline Phosphatase 160 U/L (38-126); Anion Gap 8 mmol/L; Blood Urea Nitrogen 23 mg/dL (9-20); Calcium 8.1 mg/dL (8.4-10.2); Carbon Dioxide 26 mmol/L (22-30); Chloride 98 mmol/L (98-107); Glucose 125 mg/dL (74-99); HGB 15.2 gm/dL (13.0-17.5); MCH 32.7 pg (25.0-35.0); MCHC 33.8 g/dL (31.0-37.0); MCV 96.8 fL (80.0-100.0); Magnesium 2.5 mg/dL (1.6-2.3); Mean Platelet Volume 8.6; Non-African American GFR(CKD) 81 (>60 ml/min/1.73 sqM); Platelet Count 212 k/uL (150-450); RBC 4.65 m/uL (4.30-5.90); RDW 13.1 % (11.5-15.5); Salicylate <1.0 mg/dL; Sodium 132 mmol/L (137-145); Total Bilirubin 0.4 mg/dL (0.2-1.3); Total Protein 7.6 g/dL (6.3-8.2); WBC 12.8 k/uL (3.8-10.6)
[2021-02-08 06:33] LABS: Amphetamine Screen,Urine Not Detected (NotDetected); Barbiturate Screen,Urine Not Detected (NotDetected); Benzodiazepines Screen,Urine Not Detected (NotDetected); Cocaine Screen,Urine Detected (NotDetected); Methadone Screen, Urine Not Detected (NotDetected); Opiate Screen,Urine Detected (NotDetected); Oxycodone Screen, Urine Not Detected (NotDetected); Phencyclidine Screen,Urine Not Detected (NotDetected); Tricyclic Antidepressant,Urine Not Detected (NotDetected); Urn Cannabinoid Scrn Detected (NotDetected)
[2021-02-08 07:03] LABS: Potassium 6.5 mmol/L (3.5-5.1)
[2021-02-08 07:04] LABS: AST 1638 U/L (17-59)
[2021-02-08 07:07] LABS: Band Neutrophils % 7 %; Lymphocytes # (M) 1.15 k/uL (1.0-4.8); Monocytes # (M) 1.79 k/uL (0-1.0); Neutrophils % (M) 70 %; Nucleated Red Blood Cells 0 /100 WBC (0-0); Total Cells Counted 100
[2021-02-08 07:08] VITALS: TEMP 98.2
[2021-02-08] MEDS ORDERED: INSULIN REGULAR 100 UNIT/ML VIAL (IV) IV ONE (07:26)
[2021-02-08] MEDS ORDERED: SODIUM BICARB 8.4% 50 ML SYR (1 MEQ/ML) IV STA (07:26)
[2021-02-08] MEDS ORDERED: CALCIUM CHLORIDE 100 MG/ML 10 ML SYRINGE IVP STA (07:26)
[2021-02-08] MEDS ORDERED: DEXTROSE 50% SYRINGE 50 ML IVP STA (07:26)
[2021-02-08 07:55] VITALS: BP 143/98; PULSE 84; RESP 18
== END 2021-02-08 08:14 | disposition other institution (70) ==
LOC: EC 03:39
DX: T79.A21A Traumatic compartment syndrome of right lower extremity, initial encounter (principal); M62.82 Rhabdomyolysis; B17.9 Acute viral hepatitis, unspecified; B19.20 Unspecified viral hepatitis C without hepatic coma; E87.5 Hyperkalemia; F19.10 Other psychoactive substance abuse, uncomplicated; R74.01 Elevation of levels of liver transaminase levels; F12.90 Cannabis use, unspecified, uncomplicated; F11.10 Opioid abuse, uncomplicated; F17.200 Nicotine dependence, unspecified, uncomplicated; Z88.5 Allergy status to narcotic agent
CPT/HCPCS: 99284; 36415; 83880; 80053; 82140; 82550; 82553; 83605; 83735; 84100; 84484; 85025; 85610; 85730; 81001; 87040; 80306; 80143; 80320; 87086; 80179; 73590; 96374; 96375 ×6; J2060; J2270; J0696

== ENCOUNTER 2021-02-23 14:32 | Emergency (ER) | payer OTHER ==
[2021-02-23 15:50] VITALS: RESP 20
--- NOTE | 2021-02-23 17:31 | ED ---
Extremity Problem HPI - General Source: patient Mode of arrival: wheelchair Limitations: no limitations <Amanda Schmidt - Last Filed: 02/23/21 17:47> <Pamrjit Gould - Last Filed: 02/23/21 23:34> - General Chief complaint: Extremity Problem,Nontraumatic Stated complaint: PostOp Rt Foot/Leg Swelling Time Seen by Provider: 02/23/21 15:53 - History of Present Illness Initial comments: Patient is a 30-year-old male presenting to the emergency department with concerns of right foot swelling with increasing over the past few days. He was seen here in her ER about 2 weeks ago, was transferred to [facility] for compartment syndrome of his right lower leg. Patient states that he left [facility] 2 days ago AMA after a fasciotomy, one week ago, skin grafts. He states "they were trying to keep me there against my will." He states he went to [facility] yesterday for antibiotics. He was placed on Keflex. They didn't change his dressings and a re-wrapped his leg. He presents today because he noticed increased swelling of his right ankle. He states he's been mostly in a wheelchair or sitting in a chair at home. He has not been doing proper elevation. He denies any increase in his pain, no chest pain or shortness of breath, no cough. He denies any fevers or chills. He states he is just really nervous about the swelling as he does not want to "lose his leg." Does have a follow-up appointment with his surgeon in 2 weeks. He has no further complaints at this time. Upon arrival to the ER his vitals are stable. (Amanda Schmidt) - Related Data Home Medications Medication Instructions Recorded Confirmed No Known Home Medications 01/22/21 01/23/21 Allergies Allergy/AdvReac Type Severity Reaction Status Date / Time codeine AdvReac Itching Verified 02/23/21 15:49 Review of Systems ROS Other: All systems not noted in ROS Statement are negative. <Amanda Schmidt - Last Filed: 02/23/21 17:47> ROS Other: All systems not noted in ROS Statement are negative. <Parmjit Gould - Last Filed: 02/23/21 23:34> ROS Statement: Those systems with pertinent positive or pertinent negative responses have been documented in the HPI. Past Medical History Past Medical History: Seizure Disorder Additional Past Medical History / Comment(s): DDD, scoliosis, ADHD, HEP C History of Any Multi-Drug Resistant Organisms: None Reported Additional Past Surgical History / Comment(s): facial surgery after dog bite. DDD , scoliosis. fasciotomy Past Anesthesia/Blood Transfusion Reactions: No Reported Reaction Additional Past Anesthesia/Blood Transfusion Reaction / Comment(s): clausterphobia Past Psychological History: ADD/ADHD, Bipolar, Schizophrenia Smoking Status: Current every day smoker Past Alcohol Use History: Abuse, Daily, Heavy Past Drug Use History: Heroin, Marijuana - Past Family History Mother Additional Family Medical History / Comment(s): psych issues , anger issues, ddd, crohns disease Father History Unknown: Yes <Amanda Schmidt - Last Filed: 02/23/21 17:47> General Exam Limitations: no limitations <Amanda Schmidt - Last Filed: 02/23/21 17:47> - General Exam Comments Initial Comments: GENERAL: Patient is well-developed and well-nourished. Patient is nontoxic and in no acute distress. HEAD: Atraumatic, normocephalic. EYES: Pupils equal round and reactive to light, extraocular movements intact, sclera anicteric, conjunctiva are normal. Eyelids were unremarkable. ENT: Moist mucous membranes. NECK: Normal range of motion, supple without lymphadenopathy or JVD. LUNGS: Unlabored respirations. Breath sounds clear to auscultation bilaterally and equal. No wheezes rales or rhonchi. HEART: Regular rate and rhythm without murmurs, rubs or gallops. ABDOMEN: Soft, nontender, normoactive bowel sounds. No guarding, no rebound. No masses appreciated. : Deferred MUSCULOSKELETAL: Patient has full active range of motion of his right knee and right ankle. Neurovascular intact, sensation is equal in bilateral lower legs. He does have some moderate swelling noted of his right foot however this is very soft, compressible. No clubbing or cyanosis. NEUROLOGICAL: Patient is alert and oriented x 3. Normal speech, normal gait. PSYCH: Normal mood, normal affect. SKIN: Warm, Dry, normal turgor, no rashes. Patient is status post fasciotomy, skin graft times one week ago. His wounds like clean, dry and intact, there is some mild drainage noted. No erythema, no signs of infection. Compartments are soft and compressible. (Amanda Schmidt) Course Vital Signs 02/23/21 02/23/21 15:45 18:01 Temperature 98.2 F 98.0 F Pulse Rate 99 96 Respiratory 20 20 Rate Blood Pressure 132/73 136/80 O2 Sat by Pulse 100 96 Oximetry Medical Decision Making <Amanda Schmidt - Last Filed: 02/23/21 17:47> <Parmjit Gould - Last Filed: 02/23/21 23:34> - Medical Decision Making Patient is a 30-year-old male here for recheck of swelling of his right foot. He is status post 1 week fasciotomy of right lower leg secondary to compartment syndrome. He was seen here 2 weeks ago, transferred to the [facility] for compartment syndrome. He left AMA 2 days ago, after they were" trying to keep me against my will". He is here for recheck of swelling of his right foot. A Shantz wounds are healing well, there is no signs of infection, some mild drainage, compartments are soft and compressible. He does have some moderate swelling of his right foot. He said has not been elevating above his heart level. He's been mostly sitting in a chair with a propped up. We discussed needing to elevate above his heart level, also doing ankle pumps. I feel like the swelling is secondary to him not elevating and being active throughout the day. There is no signs of infection, no signs of compartment syndrome. His vitals are stable. He is in no acute distress. We discussed elevation techniques. He is stable for discharge. He will follow up with the surgeon in a couple weeks. He is on antibiotics which he will continue. He is stable for discharge. Case discussed with Dr. Gould. (Amanda Schmidt) Patient has intact pulses with good capillary refill of the RLQ and right foot. He has intact sensation with no appreciable paresthesias of the leg and foot on the right. Compartments are soft and not distended in the RLQ. He has postsurgical changes present. I'm concerned for compartment syndrome at this time. I did discuss this with the patient instructed to to the emergency department if he does have concern for any acute changes. We advised that he follow-up with his surgeon and elevate his right lower extremity to help with the swelling. He was in agreement (Parmjit Gould) Disposition Is patient prescribed a controlled substance at d/c from ED?: No Time of Disposition: 17:30 <Amanda Schmidt - Last Filed: 02/23/21 17:47> <Parmjit Gould - Last Filed: 02/23/21 23:34> Clinical Impression: Swelling of right foot Disposition: HOME SELF-CARE Condition: Stable Instructions (If sedation given, give patient instructions): Acute Wound Care (ED) Additional Instructions: Please return to the Emergency Department if symptoms worsen or any other concerns. Please elevate your lower leg above the heart level as discussed. You need to be laying flat with your leg above your heart level. Continue to do ankle pumps throughout the day. Please follow up with your surgeon in 2 weeks as already scheduled. Referrals: None,Stated [Primary Care Provider] - 1-2 days
[2021-02-23 18:04] VITALS: BP 136/80; PULSE 96; TEMP 98
== END 2021-02-23 18:03 | disposition home or self-care (01) ==
LOC: EC 14:32
DX: M79.89 Other specified soft tissue disorders (principal); F17.200 Nicotine dependence, unspecified, uncomplicated; F12.90 Cannabis use, unspecified, uncomplicated; F11.90 Opioid use, unspecified, uncomplicated; Z88.5 Allergy status to narcotic agent
CPT/HCPCS: 99283